=== PATIENT | female | born 1985 | race African-American/Black ===

== ENCOUNTER 2020-02-17 13:48 | Emergency (ER) | payer MEDICAID, SELFPAY ==
[2020-02-17 13:51] VITALS: BP 110/77; PULSE 88; RESP 16; TEMP 36.6; O2SAT 99; BMI 25.0
--- NOTE | 2020-02-17 14:05 | XR_ITS ---
EXAMINATION: XR FOOT, LEFT CLINICAL INFORMATION: Injury. COMPARISON: None TECHNIQUE: AP, lateral, and oblique views of the left foot. FINDINGS: There is a faint area of linear sclerosis through the base of the 5th metatarsal, adjacent to the overlying skin marker. Findings may represent a nondisplaced fracture. Correlation for focal tenderness is recommended. No additional fracture or dislocation. No joint space narrowing or marginal osteophytes. No osseous erosion. No abnormal soft tissue calcification. XR/XR foot LT min 3V IMPRESSION: Possible nondisplaced, transverse fracture through the proximal 5th metatarsal diaphysis.
--- NOTE | 2020-02-17 16:04 | ED.LOWEXIN ---
HPI - Extremity Injury (Lower) General Chief Complaint: Extremity Injury, Lower Stated Complaint: foot injury Time Seen by Provider: 02/17/20 14:05 History of Present Illness HPI Narrative: Pain in left foot after twisting it this morning, no other injuries no head injury no neck pain no headache no dizziness no weakness she tripped and fell and remembers everything Related Data Previous Rx's Medication Instructions Recorded hydrocodone-acetaminophen 1 tab PO Q6H PRN #10 tab 02/17/20 ibuprofen 600 mg PO Q6H PRN #20 tab 02/17/20 Allergies Allergy/AdvReac Type Severity Reaction Status Date / Time No Known Allergies Allergy Verified 02/17/20 13:55 Review of Systems Review of Systems: Positive for left ankle pain and swelling No dizziness no weakness no headache no confusion no head injury no loss of consciousness no neck pain no numbness weakness or tingling no other injury PMFSH Past Medical History Source: nursing notes reviewed Social History Social History Advance Directives: No Advance Directives Information Provided: No Physical Exam Vital Signs: Vital Signs: Last Vital Signs Temp 97.9 F 02/17/20 13:51 Pulse 88 02/17/20 13:51 Resp 16 02/17/20 13:51 BP 110/77 02/17/20 13:51 Pulse Ox 99 02/17/20 13:51 Body Mass Index 25.0 General appearance comfortable relax no distress cooperative The head is normocephalic atraumatic The neck is supple The respiratory there is no respiratory distress The extremities the left foot is tender and swollen over the 5th metatarsal, the ankle has full range of motion, the toes have full range of motion, skin is intact and neurovascular intact Neuro no focal deficit Course Course Course Narrative: X-ray showed a probable left 5th meta tarsal in the same area as the tenderness and swelling Patient is given postop shoe and crutches and will follow with Orthopedics Discharge Plan Discharge Clinical Impression: Foot fracture, left Patient Disposition: Home, Self-Care Additional Instructions: X-ray showed you probably broke a bone in her foot, so follow with orthopedist next week Wear shoe to immobilize the foot Minimal weight-bearing Return any concerns Prescriptions: New hydrocodone-acetaminophen 5-325 mg tablet 1 tab PO Q6H PRN (Reason: pain) Qty: 10 RF: 0 ibuprofen 600 mg tablet 600 mg PO Q6H PRN (Reason: pain) Qty: 20 RF: 0 Referrals: Romario Corral MD [Physician] - 2 days (Left foot 5th metatarsal fracture) Interventions: ED Discharge Assessment Last Done: 02/17/20 16:06 Discharge Date/Time: 02/17/20 16:08
--- NOTE | 2020-02-17 16:07 | PC.NURSE ---
POST OP SHOE AND CRUTCHES IN USE AT TIME OF DC
== END 2020-02-17 16:08 | disposition home or self-care (01) ==
PROVIDERS: Emergency Provider Emergency Medicine; PCP Internal Medicine
DX: S92.355A Nondisplaced fracture of fifth metatarsal bone, left foot, initial encounter for closed fracture (principal); X50.1XXA Overexertion from prolonged static or awkward postures, initial encounter; Y93.9 Activity, unspecified; Y92.019 Unspecified place in single-family (private) house as the place of occurrence of the external cause; Y99.9 Unspecified external cause status
CPT/HCPCS: 73630; 99283

== ENCOUNTER → 2020-02-22 10:14 | Outpatient (BNVA) | payer MEDICAID, SELFPAY | PROVIDERS: PCP Internal Medicine; Visit Provider Physician Assistant | DX: S92.355A Nondisplaced fracture of fifth metatarsal bone, left foot, initial encounter for closed fracture (principal) | CPT/HCPCS: 99202 ==

== ENCOUNTER 2020-03-28 08:48 | Outpatient (REF) | payer MEDICAID, SELFPAY ==
--- NOTE | ~2020-03-28 | XR_ITS ---
EXAMINATION: XR FOOT, LEFT CLINICAL INFORMATION: Fracture COMPARISON: Previous x-ray 02/17/2020 TECHNIQUE: AP, lateral, and oblique views of the left foot. FINDINGS: Bone alignment is normal. No definite fracture or dislocation is seen. Faint linear line of sclerosis in the proximal shaft of the fifth metatarsal bone appears unchanged. Similar finding is seen in the base of the fourth metatarsal bone and appearance is unlikely to represent a fracture. This could be confirmed with a bone scan or cross-sectional imaging if clinically indicated. There is mild hallux valgus deformity at the first MTP joint. Joint spaces are normal. There is a small 1 to 2 mm radiopaque soft tissue density adjacent to the proximal phalanx of the fifth toe and question adjacent to the first metatarsal head. XR/XR foot LT min 3V IMPRESSION: No definite fracture is seen. Mild hallux valgus deformity at the first MTP joint.
== END 2020-03-28 08:49 | disposition home or self-care (01) ==
LOC: HO.HOSX 08:48
PROVIDERS: Visit Provider Physician Assistant
DX: S92.355A Nondisplaced fracture of fifth metatarsal bone, left foot, initial encounter for closed fracture (principal); X58.XXXA Exposure to other specified factors, initial encounter; Y93.9 Activity, unspecified; Y92.9 Unspecified place or not applicable; Y99.8 Other external cause status
CPT/HCPCS: 73630; 99212

== ENCOUNTER 2020-06-11 16:15 | Emergency (ER) | payer MEDICAID, SELFPAY ==
[2020-06-11 16:38] VITALS: BP 132/83; PULSE 97; RESP 18; TEMP 36.7; O2SAT 98; BMI 25.0
--- NOTE | 2020-06-11 16:59 | ED.GENADULT ---
HPI - General Adult General Chief complaint: General Medical Stated complaint: Cough Time Seen by Provider: 06/11/20 16:46 Source: patient Mode of arrival: ambulatory Limitations: no limitations History of Present Illness HPI narrative: 34-year-old female with a past medical history of asthma here with complaints of scratchy, dry throat times several weeks with a dry cough.. No shortness of breath, wheezing, runny nose, sneezing or itching eyes. Patient's motor primary care doctor and was recommended she use Flonase after negative COVID test. She tells me she uses for 1 week with continued symptoms. No fevers or chills. Related Data Home Medications Medication Instructions Recorded Confirmed citalopram 10 mg tablet 10 mg PO DAILY 02/22/20 Previous Rx's Medication Instructions Recorded hydrocodone-acetaminophen 1 tab PO Q6H PRN #10 tab 02/17/20 ibuprofen 600 mg PO Q6H PRN #20 tab 02/17/20 albuterol sulfate [ProAir HFA] 2 puff INHALATION Q4-6H PRN #6.7 g 06/11/20 cetirizine 10 mg PO DAILY #20 tab 06/11/20 fluticasone propionate [Flonase 2 spray INTRANASAL DAILY #16 g 06/11/20 Allergy Relief] Allergies Allergy/AdvReac Type Severity Reaction Status Date / Time No Known Allergies Allergy Verified 02/17/20 13:55 Review of Systems Review of Systems: Yes all other systems are reviewed and are negative Constitutional: Constitutional: Reports no additional constitutional complaints, Denies body ache(s), Denies chills, Denies fever(s), Denies headache(s) and Denies weakness Eyes: Eyes: Reports no additional eye complaints and Denies change in vision ENT: Reports system reviewed and no additional complaints, except as documented, Denies dizziness, Denies headache(s), Denies nasal congestion, Denies nasal discharge, Denies neck pain and Reports sore throat Cardiovascular: Cardiovascular: Reports no additional cardiovascular complaints, Denies chest pain, Denies leg edema and Denies dyspnea Respiratory: Respiratory: Reports no additional respiratory complaints, Reports cough and Denies dyspnea Gastrointestinal: Gastrointestinal: Reports no additional gastrointestinal complaints, Denies abdominal pain, Denies diarrhea, Denies nausea and Denies vomiting Genitourinary: Genitourinary: Reports no additional female genitourinary complaints and Denies urinary incontinence Musculoskeletal: Musculoskeletal: Reports no additional musculoskeletal complaints, Denies back pain, Denies arthralgias, Denies joint swelling, Denies neck pain, Denies numbness and Denies tingling Integumentary/Breasts: Skin/Breast: Reports system reviewed and no additional complaints, except as docu and Denies rash Neurologic: Reports system reviewed and no additional complaints, except as documented, Denies Abnormal speech present, Denies dizziness, Denies headache(s), Denies numbness, Denies tingling and Denies weakness [facility] Past Medical History Attestation statement: The following information was validated with the patient. Source: old records reviewed and nursing notes reviewed Medical History Asthma Surgical History Hx of appendectomy Family History Family History Mother No problems noted. Father No problems noted. Social History Social History Alcohol intake: never Smoking Status: Never smoker Advance Directives: No Advance Directives Information Provided: No Current occupational status: unemployed and other Current occupation: right handed Physical Exam Vital Signs: Vital Signs: Last Vital Signs Temp 98.0 F 06/11/20 16:38 Pulse 97 06/11/20 16:38 Resp 18 06/11/20 16:38 BP 132/83 06/11/20 16:38 Pulse Ox 98 06/11/20 16:38 Body Mass Index 25.0 Const: General: cooperative, healthy appearing, comfortable and no acute distress Orientation/consciousness: patient oriented x3 Limitations: no limitations HENMT: Head: Yes normal to inspection Ears: hearing grossly normal bilaterally General nose exam: Normal external nose present Face and sinus: Yes normal facial exam Mouth: Normal oral and palatal mucosa present Throat: Yes posterior oropharynx normal, Yes uvula midline, Yes abnormal tonsil (Mild erythema bilaterally with no exudate) and Yes postnasal drainage Eyes: General: appearance normal, both eyes and all related structures Pupils: Equal, round and reactive pupils present Neck: Neck: Yes normal visual inspection Chest: Chest palpation & inspection: normal inspection of the chest Resp: Effort & Inspection: normal respiratory effort Auscultation: clear to auscultation bilaterally Cardio: Rate: regular rate Rhythm: regular rhythm Peripheral pulses: Peripheral pulses 2+ throughout GI: Inspection: Yes normal to inspection Palpation (GI): Soft to palpation and nontender Auscultation: normal bowel sounds Back/Spine/Pelvis: Thoracic/Lumbar Spine: thoracic and lumbar spine normal to inspection Skin: General skin exam: no rashes or lesions noted Neuro: General: patient oriented x3, no focal motor deficits and normal sensation to monofilament Cranial nerves: Yes Equal, round and reactive pupils present Cognition (Neuro): normal cognition Speech: No Abnormal speech present Gait exam (Neuro): Normal gait present Motor exam (neuro): 5/5 motor strength present throughout Extrem: General: Yes normal to inspection Course Course Course Narrative: 34-year-old female here with itchy, dry throat with occasional dry cough for several weeks. No fevers or chills. Posterior oropharynx not consistent with strep pharyngitis. Patient did request a throat culture and this was sent. Likely secondary to allergic rhinitis. Discussed continuing Flonase, starting a daily allergy medicine like Zyrtec and using her albuterol inhaler as needed. Reviewed worrisome signs and symptoms and when to return to the emergency department. Comfortable discharge home. Discharge Plan Discharge Clinical Impression: Allergic rhinitis Pharyngitis Qualifiers: Pharyngitis/tonsillitis etiology: unspecified etiology Qualified Code(s): J02.9 - Acute pharyngitis, unspecified Patient Disposition: Home, Self-Care Instructions: Pharyngitis (ED), Allergies (ED) Additional Instructions: We have tested you for strep throat. Will call you if your results are positive and you require antibiotics. Follow-up with your primary care doctor Prescriptions: New fluticasone propionate [Flonase Allergy Relief] 50 mcg/actuation spray,suspension 2 spray intranasal DAILY Qty: 16 RF: 0 albuterol sulfate [ProAir HFA] 90 mcg/actuation HFA aerosol inhaler 2 puff inhalation Q4-6H PRN (Reason: shortness of breath or wheezing) Qty: 6.7 RF: 0 cetirizine 10 mg tablet 10 mg PO DAILY Qty: 20 RF: 0 No Action hydrocodone-acetaminophen 5-325 mg tablet 1 tab PO Q6H PRN (Reason: pain) Qty: 10 RF: 0 ibuprofen 600 mg tablet 600 mg PO Q6H PRN (Reason: pain) Qty: 20 RF: 0 Referrals: Garrison Marinelli MD [Primary Care Provider] - 2 days Stand Alone Forms: Work/School Release Interventions: ED Discharge Assessment Last Done: 06/11/20 17:20 Discharge Date/Time: 06/11/20 17:20
== END 2020-06-11 17:20 | disposition home or self-care (01) ==
PROVIDERS: Emergency Provider Internal Medicine; PCP Internal Medicine
DX: J30.9 Allergic rhinitis, unspecified (principal); J02.9 Acute pharyngitis, unspecified; R05 Cough; Z79.899 Other long term (current) drug therapy
CPT/HCPCS: 87071; 99283

== ENCOUNTER 2020-11-30 05:29 | Emergency (ER) | payer MEDICAID, SELFPAY ==
[2020-11-30 05:35] VITALS: BP 107/71; PULSE 89; RESP 18; TEMP 36.5; O2SAT 97; BMI 25.7
[2020-11-30 06:24] LABS: Basophils Percent Auto 0.2 % (0-2); Hemoglobin 12.3 g/dl (12.0-16.0); Imm Gran Abs Auto 0.01 X10*3/uL (0.00-0.03); Imm Gran Pct Auto 0.2 % (0.0-0.4); MANUAL DIFF FLAG SCAN; Mean Corpuscular HGB Conc 33.2 g/dl (31.0-35.0); Mean Corpuscular Volume 84.3 fL (80-98); PLT CLUMP 1; Red Blood Count 4.39 X10*6/uL (4.20-5.50); Red Cell Distribution Width 12.4 % (11.0-16.0); SCAN SMEAR FLAG 1
[2020-11-30 06:26] LABS: Eosinophils Absolute Auto 0.1 X10*3/uL (0.0-0.4); Eosinophils Percent Auto 1.6 % (0-4); Lymphocytes Absolute Auto 1.3 X10*3/uL (1.2-4.9); Lymphocytes Percent Auto 19.9 % (20-40); Mean Platelet Volume 11.8 fL (9.4-12.3); Monocytes Absolute Auto 0.5 X10*3/uL (0.1-1.2); Monocytes Percent Auto 8.5 % (2-11); Neutrophils Absolute Auto 4.5 X10*3/uL (2.0-8.3); Neutrophils Percent Auto 69.6 % (45-73); Platelet Count 132 X10*3/uL (160-400); White Blood Count 6.4 X10*3/uL (4.8-10.8)
[2020-11-30 06:36] LABS: Alanine Aminotransferase 13 U/L (0-31); Albumin Level 4.3 g/dL (3.5-5.0); Alkaline Phosphatase 68 U/L (39-117); Anion Gap 11 (12-20); Aspartate Amino Transferase 17 U/L (5-31); Bilirubin Total 0.5 mg/dL (0.0-1.0); Blood Urea Nitrogen 5 mg/dL (9-16); Calcium 8.9 mg/dL (8.4-10.2); Carbon Dioxide 28 mmol/L (22-29); Chloride 103 mmol/L (96-108); Creatinine Clr Calc Pharmacy 109.2; Estimated Glomerular Filt Rate > 60; Glucose Random 96 mg/dL (60-115); Potassium 3.8 mmol/L (3.3-5.1); Sodium 138 mmol/L (135-145); Total Protein 7.2 g/dL (6.5-8.0)
[2020-11-30 06:43] LABS: SLIDE REVIEW VERIFIED
--- NOTE | 2020-11-30 06:52 | ED.EXTPRO ---
HPI - Extremity Problem General Chief complaint: Extremity Injury, Upper Stated complaint: swollen arm Time Seen by Provider: 11/30/20 06:39 Source: patient Mode of arrival: ambulatory Limitations: no limitations History of Present Illness HPI Narrative: Patient comes emergency room complaining of a skin infection in her left forearm. Patient states that approximately 3 days ago, she had a pimple, she squeezed it with her fingers, shortly after it started becoming red, swollen, and painful. Patient denies fever chills, patient denies any joint pain especially in the elbow. Related Data Home Medications Medication Instructions Recorded Confirmed citalopram 10 mg tablet 10 mg PO DAILY 02/22/20 Previous Rx's Medication Instructions Recorded hydrocodone 5 mg-acetaminophen 325 1 tab PO Q6H PRN #10 tab 02/17/20 mg tablet ibuprofen 600 mg tablet 600 mg PO Q6H PRN #20 tab 02/17/20 albuterol sulfate 90 mcg/actuation 2 puff INHALATION Q4-6H PRN #6.7 g 06/11/20 aerosol inhaler (ProAir HFA) cetirizine 10 mg tablet 10 mg PO DAILY #20 tab 06/11/20 fluticasone propionate 50 2 spray INTRANASAL DAILY #16 g 06/11/20 mcg/actuation nasal spray,suspension (Flonase Allergy Relief) sulfamethoxazole 800 1 tab PO BID #19 tab 11/30/20 mg-trimethoprim 160 mg tablet (Bactrim DS) Allergies Allergy/AdvReac Type Severity Reaction Status Date / Time No Known Allergies Allergy Verified 02/17/20 13:55 Review of Systems Review of Systems: Constitutional : No Weight loss, No Fever, No Chills, No Night Sweats, No Fatigue, No Malaise ENT/Mouth : No Hearing loss, No Ear Pain, No Nasal Congestion, No Sinus Pain, No Hoarseness, No sore throat, No Rhinorrhea, No Swallowing Difficulty Eyes: No Eye Pain, No Swelling, No Redness, No Foreign Body, No Discharge, No Vision Changes Cardiovascular : No Chest Pain, No SOB, No Dyspnea on Exertion, No Orthopnea, No Edema, No Palpitations Respiratory : No Cough, No Sputum, No Wheezing, No Smoke Exposure, No Dyspnea Gastrointestinal : No Nausea, No Vomiting, No Diarrhea, No Constipation, No abdominal Pain, No Hematochezia, No Melena Genitourinary : no irregular bleeding, No Dysuria, No Urinary Frequency, No Hematuria, No Urinary Incontinence, No Urgency, No Flank Pain, No Urinary Flow Changes, No Hesitancy Musculoskeletal : No joint pain, No Myalgias, No Joint Swelling Skin : Skin infection in the proximal forearm left side Neuro : No Weakness, No Numbness, No Paresthesias, No Loss of Consciousness, No Dizziness, No Headache Psych : No Anxiety/Panic, No Depression, No SI/HI/AH/VH, No Social Issues, Heme/Lymph: No Bruising, No Bleeding,No Lymphadenopathy Endocrine : No Polyuria, No Polydipsia, No Temperature Intolerance [facility] Past Medical History Medical History Asthma Surgical History Hx of appendectomy Family History Family History Mother No problems noted. Father No problems noted. Social History Social History Alcohol intake: never Advance Directives: No Advance Directives Information Provided: Yes Patient : No Current occupational status: unemployed and other Current occupation: right handed Physical Exam Vital Signs: Vital Signs: Last Vital Signs Temp 97.7 F 11/30/20 05:35 Pulse 89 11/30/20 05:35 Resp 18 11/30/20 05:35 BP 107/71 11/30/20 05:35 Pulse Ox 97 11/30/20 05:35 Body Mass Index 25.7 Const: Other: Appearance: Alert. Oriented X3. No acute distress. Eyes: Pupils equal, round and reactive to light. ENT: Pharynx normal. Neck: Normal inspection. Neck supple. No lymph nodes noted. No crepitus CVS: Normal heart rate and rhythm. Pulses normal. Normal S1 and S2 Respiratory: No respiratory distress. Breath sounds normal. No Wheezing. No rales Abdomen: Soft and nontender. No rigidity. No distention. good BS x4 Skin: Skin warm and dry. See extremity below Extremities: No lower extremity edema. 6 cm x 6 cm erythematous patch in the proximal aspect of the forearm on the left side, bedside ultrasound shows cobblestone pattern/cellulitis, no abscess, no fluid in the joint. Patient is able to flex and extend wrist elbow and shoulder without difficulty. No pain to palpation over the elbow on the left side. Neuro: Oriented X 3. No motor deficit. No sensory deficit. Moving all extermities. No slurred speech. Course Course Course Narrative: I discussed the physical exam with the patient, at this time septic joint is not suspected. White blood cell count within normal limits, no fever chills. Patient was given the 1st dose of Bactrim. Patient was instructed to return to the emergency room she has any worsening symptoms, not improving, or any new symptoms. MDM - Extremity (Nontraumatic) Lab Data Result diagrams: 11/30/20 06:13 11/30/20 06:13 Labs: Lab Results 11/30/20 11/30/20 Range/Units 06:13 06:13 WBC 6.4 (4.8-10.8) X10*3/uL RBC 4.39 (4.20-5.50) X10*6/uL Hgb 12.3 (12.0-16.0) g/dl Hct 37.0 (37-47) % MCV 84.3 (80-98) fL MCH 28.0 (27.0-33.0) pg MCHC 33.2 (31.0-35.0) g/dl RDW 12.4 (11.0-16.0) % Plt Count 132 L (160-400) X10*3/uL MPV 11.8 (9.4-12.3) fL Immature Gran % (Auto) 0.2 (0.0-0.4) % Neut % (Auto) 69.6 (45-73) % Lymph % (Auto) 19.9 L (20-40) % Bladen % (Auto) 8.5 (2-11) % Eos % (Auto) 1.6 (0-4) % Baso % (Auto) 0.2 (0-2) % Lymph # (Auto) 1.3 (1.2-4.9) X10*3/uL Bladen # (Auto) 0.5 (0.1-1.2) X10*3/uL Eos # (Auto) 0.1 (0.0-0.4) X10*3/uL Baso # (Auto) 0.0 (0.0-0.2) X10*3/uL Abs Immat Gran (auto) 0.01 (0.00-0.03) X10*3/uL Absolute Neuts (auto) 4.5 (2.0-8.3) X10*3/uL Absolute Nucleated RBC 0.000 (0.0-0.012) X10*3/uL Nucleated RBC % (auto) 0.0 (0.0-0.2) /100WBC Smear Tech's Comments VERIFIED Sodium 138 (135-145) mmol/L Potassium 3.8 (3.3-5.1) mmol/L Chloride 103 (96-108) mmol/L Carbon Dioxide 28 (22-29) mmol/L Anion Gap 11 L (12-20) BUN 5 L (9-16) mg/dL Creatinine 0.78 (0.5-1.4) mg/dL Estim Creat Clear Calc 109.2 Estimated GFR > 60 Random Glucose 96 (60-115) mg/dL Calcium 8.9 (8.4-10.2) mg/dL Total Bilirubin 0.5 (0.0-1.0) mg/dL AST 17 (5-31) U/L ALT 13 (0-31) U/L Alkaline Phosphatase 68 (39-117) U/L Total Protein 7.2 (6.5-8.0) g/dL Albumin 4.3 (3.5-5.0) g/dL Discharge Plan Discharge Clinical Impression: Cellulitis of arm Patient Disposition: Home, Self-Care Instructions: Cellulitis (ED) Additional Instructions: If the infection does not improve in the next 48 hours, or if you develop at any time fever, chills, worsening pain, any new symptoms, please return to the emergency room. Please follow-up with your primary care physician tomorrow. If you have any worsening or new symptoms, please return to the emergency room or call 911 Prescriptions: New sulfamethoxazole-trimethoprim [Bactrim DS] 800-160 mg tablet 1 tab PO BID Qty: 19 RF: 0 No Action hydrocodone-acetaminophen 5-325 mg tablet 1 tab PO Q6H PRN (Reason: pain) Qty: 10 RF: 0 ibuprofen 600 mg tablet 600 mg PO Q6H PRN (Reason: pain) Qty: 20 RF: 0 fluticasone propionate [Flonase Allergy Relief] 50 mcg/actuation spray,suspension 2 spray intranasal DAILY Qty: 16 RF: 0 albuterol sulfate [ProAir HFA] 90 mcg/actuation HFA aerosol inhaler 2 puff inhalation Q4-6H PRN (Reason: shortness of breath or wheezing) Qty: 6.7 RF: 0 cetirizine 10 mg tablet 10 mg PO DAILY Qty: 20 RF: 0
[2020-11-30] MEDS: Sulfamethox/Trimeth 800/160 TABLET 1 TAB PO (07:05)
== END 2020-11-30 07:06 | disposition home or self-care (01) ==
PROVIDERS: Emergency Provider Emergency Medicine
DX: L03.114 Cellulitis of left upper limb (principal); Z79.899 Other long term (current) drug therapy
CPT/HCPCS: 36415; 80053; 85025; 99283; 99284

== ENCOUNTER 2021-02-18 20:35 | Emergency (ER) | payer MEDICAID, SELFPAY ==
[2021-02-18 21:40] VITALS: BP 112/75; PULSE 77; RESP 14; TEMP 36.9; O2SAT 98; BMI 25.0
--- NOTE | 2021-02-18 21:56 | ECG_ITS ---
Test Reason : DIZZY Blood Pressure : / mmHG Vent. Rate : 063 BPM Atrial Rate : 063 BPM P-R Int : 140 ms QRS Dur : 092 ms QT Int : 386 ms P-R-T Axes : 066 083 034 degrees QTc Int : 395 ms Normal sinus rhythm Normal ECG No previous ECGs available Referred By: Mc Claudio Electronically Signed By:ROBB PALMER MD
--- NOTE | 2021-02-18 21:56 | ED_ITS ---
HPI - General Adult General Chief complaint: General Medical Stated complaint: food allegries, hives all over body Time Seen by Provider: 02/18/21 21:56 Source: patient Mode of arrival: ambulatory Limitations: no limitations History of Present Illness HPI narrative: Patient with history of allergies in the past multiple times from multiple agents she ate some overt with berries and started having hives so she drank about 200 mg of children Benadryl as she was scared of having anaphylaxis and she does not have EpiPen at home she took the medication about an hour prior to arrival at this time patient is very sleepy no other complaints hives are getting better no shortness of breath no tongue swelling or lip swelling Related Data Home Medications Medication Instructions Recorded Confirmed citalopram 10 mg tablet 10 mg PO DAILY 02/22/20 Previous Rx's Medication Instructions Recorded hydrocodone 5 mg-acetaminophen 325 1 tab PO Q6H PRN #10 tab 02/17/20 mg tablet ibuprofen 600 mg tablet 600 mg PO Q6H PRN #20 tab 02/17/20 albuterol sulfate 90 mcg/actuation 2 puff INHALATION Q4-6H PRN #6.7 g 06/11/20 aerosol inhaler (ProAir HFA) cetirizine 10 mg tablet 10 mg PO DAILY #20 tab 06/11/20 fluticasone propionate 50 2 spray INTRANASAL DAILY #16 g 06/11/20 mcg/actuation nasal spray,suspension (Flonase Allergy Relief) sulfamethoxazole 800 1 tab PO BID #19 tab 11/30/20 mg-trimethoprim 160 mg tablet (Bactrim DS) prednisone 20 mg tablet 40 mg PO DAILY #10 tab 02/18/21 Allergies Allergy/AdvReac Type Severity Reaction Status Date / Time No Known Allergies Allergy Verified 02/17/20 13:55 Review of Systems Review of Systems: Yes all other systems are reviewed and are negative PMFSH Past Medical History Medical History Asthma Surgical History Hx of appendectomy Family History Family History Mother No problems noted. Father No problems noted. Social History Social History Alcohol intake: never Advance Directives: No Advance Directives Information Provided: No Patient : No Current occupational status: unemployed and other Current occupation: right handed Physical Exam Vital Signs: Vital Signs: Last Vital Signs Temp 98.4 F 02/18/21 21:40 Pulse 82 02/18/21 22:02 Resp 18 02/18/21 22:02 BP 120/67 02/18/21 22:02 Pulse Ox 98 02/18/21 22:02 BMI result Body Mass Index 25.0 Appearance: Alert. Oriented X3. No acute distress. Lethargic Eyes: PERRLA, No Nystagmus ENT: Pharynx normal. Oral Mucosa moist lips are normal tongue is normal uvula normal no stridor Neck: Normal inspection. Neck supple. CVS: Normal heart rate and rhythm. Pulses normal. Respiratory: No respiratory distress. Equal air entry bilateral, no wheezing/rales/rhonchi Abdomen: Soft and nontender. Bowel sounds are present, Skin: Skin warm and dry. Normal skin color. Normal skin turgor. Few hives on abdominal wall Extremities: No lower extremity edema. No calf tenderness Neuro: Oriented X 3. No motor deficit. Medical Decision Making MDM Narrative Medical decision making narrative: Patient with known toxic overdose on Benadryl which is less than 300 mg daily dosage. Patient advised about the side effect of Benadryl advised not to take over the prescribed dose of Benadryl was given prescription of prednisone as she had a bad history of allergic reaction in the past will discharge patient home advised to follow-up with simulation specialist Discharge Plan Discharge Clinical Impression: Allergic reaction, Overdose Patient Disposition: Home, Self-Care Instructions: General Allergic Reaction (ED), Adult Overdose (ED) Additional Instructions: Do not take medication more than prescribed Prednisone for allergic reaction if rash continues Follow the simulation specialist Drink plenty of fluids Prescriptions: New prednisone 20 mg tablet 40 mg PO DAILY Qty: 10 RF: 0 No Action hydrocodone-acetaminophen 5-325 mg tablet 1 tab PO Q6H PRN (Reason: pain) Qty: 10 RF: 0 ibuprofen 600 mg tablet 600 mg PO Q6H PRN (Reason: pain) Qty: 20 RF: 0 fluticasone propionate [Flonase Allergy Relief] 50 mcg/actuation spray,suspension 2 spray intranasal DAILY Qty: 16 RF: 0 albuterol sulfate [ProAir HFA] 90 mcg/actuation HFA aerosol inhaler 2 puff inhalation Q4-6H PRN (Reason: shortness of breath or wheezing) Qty: 6.7 RF: 0 cetirizine 10 mg tablet 10 mg PO DAILY Qty: 20 RF: 0 sulfamethoxazole-trimethoprim [Bactrim DS] 800-160 mg tablet 1 tab PO BID Qty: 19 RF: 0 Interventions: ED Discharge Assessment Last Done: 02/18/21 22:48 Discharge Date/Time: 02/18/21 22:49
[2021-02-18 22:02] VITALS: BP 120/67; PULSE 82; RESP 18; O2SAT 98
[2021-02-18] MEDS: dexAMETHasone 2 MG TABLET 10 MG PO (22:23)
== END 2021-02-18 22:49 | disposition home or self-care (01) ==
PROVIDERS: Emergency Provider Internal Medicine; PCP Internal Medicine
DX: L50.9 Urticaria, unspecified (principal); T78.40XA Allergy, unspecified, initial encounter; X58.XXXA Exposure to other specified factors, initial encounter; T45.0X1A Poisoning by antiallergic and antiemetic drugs, accidental (unintentional), initial encounter; R53.83 Other fatigue; Y92.009 Unspecified place in unspecified non-institutional (private) residence as the place of occurrence of the external cause
CPT/HCPCS: 93005; 99283; 99284; J8540

== ENCOUNTER 2022-09-23 15:26 | Outpatient (REF) | payer OTHER, SELFPAY ==
[2022-09-24 04:20] LABS: HBS Num1 39.34 mIU/mL (0-7.99); ~Hepatitis B Surface Antibody REACTIVE (Nonreactive)
[2022-09-25 07:28] LABS: Rubella IgG Antibody 5.76 Index; Rubeola IgG (Measles) >300.00 AU/mL
[2022-09-25 12:19] LABS: TS Negative Control Passed; TS Panel A 0; TS Panel B 0; TS Positive Control Passed; TSpotTB Negative (Negative)
== END 2022-09-23 15:27 | disposition home or self-care (01) ==
LOC: HO.LNP 15:26
PROVIDERS: Visit Provider Physician Assistant Medical
DX: Z02.1 Encounter for pre-employment examination (principal); Z11.1 Encounter for screening for respiratory tuberculosis
CPT/HCPCS: 86481; 86706; 86735; 86762; 86765; 86787

== ENCOUNTER 2023-03-03 17:53 | Emergency (ER) | payer OTHER, SELFPAY ==
--- NOTE | ~2023-03-03 | XR_ITS ---
EXAMINATION: XR KNEE, LEFT CLINICAL INFORMATION: pain after losing footing walking down bleachers COMPARISON: None available. TECHNIQUE: Four views of the left knee. FINDINGS: No fracture or joint effusion. Alignment is anatomic. Joint spaces are maintained. No abnormal soft tissue calcification. XR/XR knee LT 3V IMPRESSION: Normal left knee.
[2023-03-03 17:56] VITALS: BP 137/88; PULSE 86; RESP 18; TEMP 36.4; O2SAT 100; BMI 24.7
--- NOTE | 2023-03-03 17:57 | ED_ITS ---
HPI - Extremity Injury (Lower) General Chief Complaint: Extremity Injury, Lower Stated Complaint: left knee pain, fell Time Seen by Provider: 03/03/23 22:02 Source: patient Mode of arrival: ambulatory Limitations: no limitations History of Present Illness HPI Narrative: Patient is a 37-year-old female who presents emergency department for evaluation of traumatic left knee pain. She reports 2 days ago she was walking down the bleachers when she fell resulting in pain to the left lower extremity. She reports a sharp shooting pain diffusely throughout the knee when weight-bearing or if the leg is put in full extension. Intermittent tingling sensation to the foot. Pain is tolerable if she has not bearing weight. She has been using ibuprofen for pain management. Related Data Home Medications Medication Instructions Recorded Confirmed citalopram 10 mg tablet 10 mg PO DAILY 02/22/20 Previous Rx's Medication Instructions Recorded hydrocodone 5 mg-acetaminophen 325 1 tab PO Q6H PRN pain #10 tabs 02/17/20 mg tablet ibuprofen 600 mg tablet 600 mg PO Q6H PRN pain #20 tabs 02/17/20 albuterol sulfate 90 mcg/actuation 2 puff inhalation Q4-6H PRN 06/11/20 aerosol inhaler (ProAir HFA) shortness of breath or wheezing #6.7 grams cetirizine 10 mg tablet 10 mg PO DAILY #20 tabs 06/11/20 fluticasone propionate 50 2 spray intranasal DAILY #16 grams 06/11/20 mcg/actuation nasal spray,suspension (Flonase Allergy Relief) sulfamethoxazole 800 1 tab PO BID #19 tabs 11/30/20 mg-trimethoprim 160 mg tablet (Bactrim DS) prednisone 20 mg tablet 40 mg (2 x 20 mg) PO DAILY #10 tabs 02/18/21 Allergies Allergy/AdvReac Type Severity Reaction Status Date / Time No Known Allergies Allergy Verified 02/17/20 13:55 Review of Systems Review of Systems: Yes all other systems are reviewed and are negative PMFSH Past Medical History Attestation statement: The following information was validated with the patient. Source: old records reviewed Onset Date is defined in the Problem List Problems that require an onset date and time if occurred within 24 hrs of arrival to the ED Aortic Dissection and Rupture; Neurologic impairment; Cardiopulmonary Arrest; Endotracheal Intubation; Insertion or Replacement of Mechanical Circulatory Assist Device Medical History Asthma Surgical History Hx of appendectomy Family History Family History Mother No problems noted. Father No problems noted. Social History Social History Alcohol intake: never Current occupational status: unemployed and other Current occupation: right handed Physical Exam Vital Signs: Vital Signs: Last Vital Signs Temp 97.5 F 03/03/23 17:56 Pulse 74 03/03/23 22:00 Resp 12 03/03/23 22:00 BP 116/79 03/03/23 22:00 Pulse Ox 97 03/03/23 22:00 O2 Del Method Room Air 03/03/23 22:00 BMI result Body Mass Index 24.7 Appearance: Alert.?Oriented to person, place and time. No acute distress.?Normal affect. Eyes: Pupils equal, round and reactive to light.? ENT: Pharynx normal.?? Neck: Normal inspection.? Neck supple.?? CVS: Heart sounds normal. Normal heart rate and rhythm.? Pulses normal.?? Respiratory: No respiratory distress.? Lung sounds clear to auscultation bilaterally?? Abdomen: Soft and non-tender. Normoactive bowel sounds. ? Skin: Skin warm and dry.? Normal skin color.? Extremities: No lower extremity edema.? No calf ttp?2+ DP/PT pulse bilaterally. Anterior drawer test negative, posterior drawer test negative, valgus and varus stress test negative, no laxity upon examination. Neuro: Moves all extremities spontaneously. Sensation intact bilaterally. CN II- XII intact. No focal neuro deficits. Ambulates with antalgic gait, Course Course Course Narrative: This is a rapid medical exam: Additional HPI, ROS, PE not included below will be deferred to primary provider. Patient is a 37-year-old female presenting to the ED with complaint of left anterior knee pain. States she was walking down bleachers on Thursday when she slipped. States pain is worst with weight bearing and full extension. Arrives with knee brace to L knee and utilizing crutches. Has been elevating, alternating ice and hot tub, using ibuprofen. Plan: x-ray Medical Decision Making Medical Decision Making MDM Narrative: Patient is a 37-year-old female who presents emergency department for evaluation of traumatic left knee pain as per HPI. XR is unremarkable for any acute fracture dislocation. No palpable deformity or crepitus on exam, no laxity. Pain is held at approximately 20 degrees flexion which is positioned most comfort, full extension results are pain. The extremities neurovascularly intact distally. I discussed with patient concerns for possible ligamentous/meniscus injury given mechanism of injury. She has a Velcro supportive brace that she purchased [id number] which I advised her to continue wearing in addition to rest, ice, and elevation. She may continue using the crutches. Acetaminophen/ibuprofen for pain management. Advised outpatient follow-up with primary care provider/Orthopedics. We discussed worrisome signs and symptoms that would warrant re-evaluation in the emergency department. All questions answered. Stable for discharge. Differential Diagnosis Differential Diagnoses: The differential diagnosis associated with the presentation includes (As noted above) Admission/Observation Consideration of admission/observation: Escalation of care including admission/ observation considered (See narrative above) Independent Interpretation I performed an independent interpretation of an: Plain X-Ray (I personally inte rpreted XR imaging and agree with radiologist impression.) Radiology Impression Discussion of test interpretation with radiology: I have reviewed the r adiologist's reading. Radiologist Impression: XR/XR knee LT 3V IMPRESSION: Normal left knee. Prescription Management I considered prescription management with: Pain Medication (Acetaminophen/ibuprofen) Discharge Plan Discharge Clinical Impression: Left knee sprain Patient Disposition: Home, Self-Care Instructions: Knee Sprain (ED), R.I.C.E. Treatment (ED) Additional Instructions: You can take ibuprofen 200 mg, 3 tablets (600mg) every 6-8 hours as needed for pain, in addition to Tylenol 500 mg, 2 tablets (1,000mg) every 4-6 hours as needed for pain, but not to exceed 3 doses daily (3,000mg).? Continue wearing knee brace and use of crutches Contact primary care provider/orthopedics for further evaluation and treatment. Return back to emergency department any new or worsening symptoms or concerns. Prescriptions: No Action hydrocodone-acetaminophen 5-325 mg tablet 1 tab PO Q6H PRN (Reason: pain) Qty: 10 0RF ibuprofen 600 mg tablet 600 mg PO Q6H PRN (Reason: pain) Qty: 20 0RF fluticasone propionate [Flonase Allergy Relief] 50 mcg/actuation spray,suspension 2 spray intranasal DAILY Qty: 16 0RF Rx Instructions: administer into each nostril albuterol sulfate [ProAir HFA] 90 mcg/actuation HFA aerosol inhaler 2 puff inhalation Q4-6H PRN (Reason: shortness of breath or wheezing) Qty: 6.7 0RF cetirizine 10 mg tablet 10 mg PO DAILY Qty: 20 0RF sulfamethoxazole-trimethoprim [Bactrim DS] 800-160 mg tablet 1 tab PO BID Qty: 19 0RF prednisone 20 mg tablet 40 mg PO DAILY Qty: 10 0RF Referrals: Yaritza Louis PA-C [Physician [employer]or [employer]er] - Garrison Marinelli MD [Primary Care Provider] -
[2023-03-03 22:00] VITALS: BP 116/79; PULSE 74; RESP 12; O2SAT 97
== END 2023-03-03 23:16 | disposition home or self-care (01) ==
PROVIDERS: Emergency Provider Internal Medicine; PCP Internal Medicine
DX: S83.92XA Sprain of unspecified site of left knee, initial encounter (principal); W10.8XXA Fall (on) (from) other stairs and steps, initial encounter; Y93.9 Activity, unspecified; Y92.9 Unspecified place or not applicable; Y99.9 Unspecified external cause status
CPT/HCPCS: 73562; 99283; 99284

== ENCOUNTER 2023-03-13 08:44 | Outpatient (AMB) | payer OTHER, SELFPAY ==
--- NOTE | 2023-03-13 08:55 | A.OFFVIS_ITS ---
Intake Vital Signs 03/13/23 09:05 Height 5 ft 7 in Weight 158 lb BMI 24.7 Intake Visit Reasons: New Prob- Left knee pain Intake Note: Rosalba duncan 37 year old female presents today for an evaluation of left knee pain, DOI 03/01/23. Patient reports that she had a fall on metal bleachers landing on her knee. She presented to [facility] ED a couple of days later due to her pain and was referred to orthopedics. Currently her pain increases with activity such as prolong walking and standing. Her pain is located in the anterior aspect of knee. Occasional numbness and tingling in her leg. Finds that icing does not provide relief. She purchased an OTC knee brace and has been using since her injury. Allergies No Known Allergies Allergy (Verified 02/17/20 13:55) Medication List - Last Reconciled 03/13/23 by Chana Saldivar PA-C albuterol sulfate 90 mcg/actuation (ProAir HFA) 2 puffs inhalation Q4-6H PRN cetirizine 10 mg PO DAILY citalopram 10 mg PO DAILY fluticasone propionate 50 mcg/actuation (Flonase Allergy Relief) 2 sprays intranasal DAILY ibuprofen 600 mg PO Q6H PRN prednisone 40 mg (2 x 20 mg) PO DAILY sulfamethoxazole-trimethoprim 800-160 mg (Bactrim DS) 1 tab PO BID HPI New Prob- Left knee pain HPI Details 37-year-old [facility] pain s/p fall on metal bleachers & landing on her knee, 03/01/23. She was seen at ED about 2 days later for her pain where she was referred to our office. She currently states she has pain at the anterior aspect of her knee which is aggravated with prolonged walking and standing. She reports she is unable to weight bear or straighten her leg and walks on her tippy toes due to the pain. She also c/o occasional numbness and tingling in her leg and experienc es her knee giving out with weight bearing. She finds no relief with icing. She is using a OTC knee brace since DOI with benefits. She has a history of left knee injury while playing football. [facility] Medical History Asthma Surgical History Hx of appendectomy Family History Mother No problems noted. Father No problems noted. 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 Tenderness along the medial and lateral joint line. Full ROM with crepitus. Negative Joan?s. Trace laxity on the left knee when compared to the contralateral side. NVI. Results Reviewed Results Reviewed: X-rays of the left knee obtained in the office today are negative for any acute or chronic abnormality. Joint space well preserved. Assessment & Plan Assessment & Plan (1) Internal derangement of left knee: Code(s): M23.92 - Unspecified internal derangement of left knee Plan An MRI of the left knee has been ordered to further evaluate the ligamentous structures. She will avoid any irritating factors for her knee. She will continue wearing her left knee brace to help with her stability. I did give her a note for closer parking at work. She will see us back once the scan is complete. Orders: Orders XR knee standing BI Today M25.561 - Pain in right knee, M25.562 - Pain in left knee XR knee LT 1V Today M25.562 - Pain in left knee MR knee LT wo con Today M23.92 - Unspecified internal derangement of left knee Patient Instructions: Scribed for Chana Saldivar PA-C, by Andrea Ahmadi medical sales specialist, on 03/13/2023 at 8:45 AM Chana DOMINGUEZ PA-C, have personally reviewed and agree with the information entered by the scribe. Coding Level of Care Code Est Pt Level 3 (18166) Diagnoses Internal derangement of left knee M23.92
[2023-03-13 09:05] VITALS: BMI 24.7
== END 2023-03-13 09:21 | disposition home or self-care (01) ==
PROVIDERS: PCP Internal Medicine; Visit Provider Physician Assistant
DX: M23.92 Unspecified internal derangement of left knee (principal)
CPT/HCPCS: 99213

== ENCOUNTER 2023-03-13 10:23 | Outpatient (REF) | payer OTHER, SELFPAY ==
--- NOTE | ~2023-03-13 | XR_ITS ---
EXAMINATION: XR KNEE AP STANDING, BILATERAL XR KNEE, LEFT CLINICAL INFORMATION: Pain in left knee. COMPARISON: Left knee 03/03/2023. TECHNIQUE: AP bilateral standing view of the knees was obtained. Robbins view of the left patella. FINDINGS: Single AP standing view of the right knee demonstrates mild medial joint space narrowing with mild medial degenerative changes. Minimal medial joint space narrowing on standing AP view of the left knee. XR/XR knee standing BI IMPRESSION: Mild medial joint space narrowing right knee. Minimal medial joint space narrowing left knee.
--- NOTE | ~2023-03-13 | XR_ITS ---
EXAMINATION: XR KNEE AP STANDING, BILATERAL XR KNEE, LEFT CLINICAL INFORMATION: Pain in left knee. COMPARISON: Left knee 03/03/2023. TECHNIQUE: AP bilateral standing view of the knees was obtained. Marissa view of the left patella. FINDINGS: Single AP standing view of the right knee demonstrates mild medial joint space narrowing with mild medial degenerative changes. Minimal medial joint space narrowing on standing AP view of the left knee. XR/XR knee LT 1V IMPRESSION: Mild medial joint space narrowing right knee. Minimal medial joint space narrowing left knee.
== END 2023-03-13 10:24 | disposition home or self-care (01) ==
LOC: HO.HOSX 10:23
PROVIDERS: Visit Provider Physician Assistant
DX: M25.562 Pain in left knee (principal); M23.92 Unspecified internal derangement of left knee; M25.561 Pain in right knee; Z79.899 Other long term (current) drug therapy
CPT/HCPCS: 73560; 73565; 99212

== ENCOUNTER 2023-03-25 07:16 | Outpatient (REF) | payer OTHER, SELFPAY ==
--- NOTE | ~2023-03-25 | MR_ITS ---
EXAMINATION: MR KNEE WITHOUT CONTRAST, LEFT CLINICAL INFORMATION: Left knee pain and swelling. Internal derangement. COMPARISON: Left knee radiographs dated 03/13/2023. TECHNIQUE: MRI of the knee without contrast was performed using routine sequences on a high-field scanner. FINDINGS: MENISCI: Medial Meniscus: Intact. Lateral Meniscus: Intact. LIGAMENTS: Cruciate: Complete versus near-complete full-thickness tear of the anterior cruciate ligament with diffuse heterogeneity of the torn ligament fibers and adjacent soft tissue edema. Intact posterior cruciate ligament. Collateral: Intact. EXTENSOR MECHANISM: Intact. ARTICULAR CARTILAGE/BONE: Patellofemoral Compartment: Focal inferior medial trochlea articular cartilage signal heterogeneity. Medial Compartment: Marrow edema at the posterior aspect of the medial tibial plateau, consistent with an osseous contusion. Intact articular cartilage. Lateral Compartment: Marrow edema at the sulcus terminalis, consistent with an osseous contusion. Intact articular cartilage. JOINT FLUID AND BURSAE: Small joint effusion. MR/MR knee LT wo con IMPRESSION: 1. Acute, complete versus near-complete tear of the anterior cruciate ligament. 2. Osseous contusions at the posterior aspect of the medial tibial plateau as well as at the sulcus terminalis. 3. Small joint effusion. 4. No meniscal tear.
== END 2023-03-25 07:17 | disposition home or self-care (01) ==
LOC: HO.MRI 07:16
PROVIDERS: Visit Provider Physician Assistant
DX: M23.92 Unspecified internal derangement of left knee (principal)
CPT/HCPCS: 73721

== ENCOUNTER 2023-04-15 12:43 | Outpatient (AMB) | payer OTHER, SELFPAY ==
--- NOTE | 2023-04-15 12:43 | A.OFFVIS_ITS ---
Intake Intake Visit Reasons: ov- MRI Knee LT review Intake Note: Rosalba a 37 year old female presents today for an MRI review of left knee. She states her left knee is still bothering her. Allergies No Known Allergies Allergy (Verified 04/15/23 12:43) HPI ov- MRI Knee LT review HPI Details 37 yo female f/u MRI left knee. She stat es she has not been able to snow board or play sports due to instability. She has mild pain but states it is not limiting her, she states she has full ROM . 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 [facility] Medical History Asthma Surgical History Hx of appendectomy Family History Mother No problems noted. Father No problems noted. 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 Acute, complete versus near-complete tear of the anterior cruciate ligament. 2. Osseous contusions at the posterior aspect of the medial tibial plateau as well as at the sulcus terminalis. 3. Small joint effusion. 4. No meniscal tear. Assessment & Plan Assessment & Plan (1) Tears of meniscus and ACL of left knee: Code(s): S83.207A - Unspecified tear of unspecified meniscus, current injury, left knee, initial encounter; S83.512A - Sprain of anterior cruciate ligament of left knee, initial encounter Qualifiers: Encounter type: initial encounter Qualified Code(s): S83.207A - Unspecified tear of unspecified meniscus, current injury, left knee, initial encounter; S83.512A - Sprain of anterior cruciate ligament of left knee, initial encounter Plan We discuss the results of her MRI today. Because she is symptomatic with instability she would like to proceed with surgical intervention. I briefly explained her what consists of an ACL reconstruction along with time she will stay in rehab and the recovery time she would have. She is content with the plan and proceed accordingly for a preop appointment with Dr. Corral. Patient Instructions: Scribed for Chana Saldivar PA-C, by Andrea Ahmadi medical office rep, on 04/15/2023 at 1:00 PM ARRON. Sapna, Chana Saldivar PA-C, have personally reviewed and agree with the information entered by the scribe. Telehealth Telehealth Location of provider rendering services: practice address Location of patient: address on file Patient Identification confirmed using: Name, : Yes Telehealth method: voice only Patient verbally consented to treatment: Yes Patient verbally consented to billing insurance company: Yes Patient informed of any privacy concerns related to visit: Yes Minutes spent on Phone/Video with Pt.: 15 Coding Level of Care Code Tele Est Pt Level 3 (51611) Diagnoses Tears of meniscus and anterior cruciate ligament of left knee, initial encounter S83.207A; S83.512A Encounter type: initial encounter
== END 2023-04-15 13:29 | disposition home or self-care (01) ==
LOC: HO.HOS 12:44
PROVIDERS: PCP Internal Medicine; Visit Provider Physician Assistant
DX: S83.207A Unspecified tear of unspecified meniscus, current injury, left knee, initial encounter (principal); S83.512A Sprain of anterior cruciate ligament of left knee, initial encounter
CPT/HCPCS: 99213

== ENCOUNTER → 2023-04-15 12:43 | Outpatient (BNVA) | payer OTHER, SELFPAY | PROVIDERS: PCP Internal Medicine; Visit Provider Physician Assistant ==

== ENCOUNTER 2023-05-01 12:22 | Outpatient (AMB) | payer OTHER, SELFPAY ==
--- NOTE | 2023-05-01 12:25 | A.OFFVIS_ITS ---
Intake Vital Signs 05/01/23 12:29 Height 5 ft 7 in Weight 158 lb BMI 24.7 Intake Visit Reasons: OV - Discuss LT knee ACL surgery Intake Note: Rosalba is a 37 year old female who presents today for a follow up of her left knee to discuss surgical intervention. She was last seen with Chana on 04/15/23 who interpreted her MRI results which showed a Left Knee ACL tear. Allergies No Known Allergies Allergy (Verified 05/01/23 12:29) HPI OV - Discuss LT knee ACL surgery HPI Details Rosalba is a 37 year old female who presents today for a follow up of her left knee to discuss surgical intervention. She was last seen with Chana on 04/15/23. SHe was playiung flag football ~ 4 weeks ago and was tackled from the side and sustained a valgus twisting injury. She heard a pop and tried to continue. Her knee swelled and she has since been unable to return to nl activities. She is very active. She works out regularly. [facility] Medical History Asthma Surgical History Hx of appendectomy Family History Mother No problems noted. Father No problems noted. 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 Resp Other: No audible wheezing Effort & Inspection: normal respiratory effort Back/Spine/Pelvis Cervical Spine: normal cervical lordosis Skin General skin exam: no rashes or lesions noted Neuro General: no focal motor deficits Extrem Other: + pivot shift 2+ clark's Minimal effusion No joint line tenderness Psych Appearance: grossly normal and well kempt Mental Status: mental status grossly normal Speech and movement: Normal speech and movement present Affect: normal affect Attitude: cooperative Results Reviewed Results Reviewed: I personally reviewed the MR images. Acute, complete versus near-complete tear of the anterior cruciate ligament. 2. Osseous contusions at the posterior aspect of the medial tibial plateau as well as at the sulcus terminalis. 3. Small joint effusion. 4. No meniscal tear. Assessment & Plan Assessment & Plan (1) Complete tear of anterior cruciate ligament of left knee: Code(s): S83.512A - Sprain of anterior cruciate ligament of left knee, initial encounter Plan: This is a 37 yo F with an ACL rupture of the left knee. She sustained this playing football. She is very physically active with sports and I recommend ACL reconstruction. I discussed this with her and we reviewed the different graft op tions. She would like to proceed forward with hamstring autograft. I discussed the risks benefits and alternatives including but not limited to the risk of pain, infection, stiffness, graft failure, inability to return to prior level of activity and the need for further surgery as well as potential medical complications such as blood clots, pulmonary embolism. She expressed understanding. We will have an autograft available for the case as well. Coding Level of Care Code Est Pt Level 4 (62794) Diagnoses Complete tear of anterior cruciate ligament of left knee S83.512A
[2023-05-01 12:29] VITALS: BMI 24.7
== END 2023-05-01 12:50 | disposition home or self-care (01) ==
PROVIDERS: PCP Internal Medicine; Visit Provider Orthopaedic Surgery
DX: S83.512A Sprain of anterior cruciate ligament of left knee, initial encounter (principal)
CPT/HCPCS: 99214

== ENCOUNTER → 2023-05-01 12:22 | Outpatient (BNVA) | payer OTHER, SELFPAY | PROVIDERS: PCP Internal Medicine; Visit Provider Orthopaedic Surgery | DX: S83.512A Sprain of anterior cruciate ligament of left knee, initial encounter (principal); X50.1XXA Overexertion from prolonged static or awkward postures, initial encounter; Y93.62 Activity, american flag or touch football; Y92.9 Unspecified place or not applicable; Y99.9 Unspecified external cause status | CPT/HCPCS: 99212 ==

== ENCOUNTER 2023-06-25 11:00 | Outpatient (AMB) | payer OTHER, SELFPAY ==
--- NOTE | 2023-06-25 11:04 | A.OFFVIS_ITS ---
Intake Visit Reasons: Preop LT ACL reconstruction 07/01/23 NE Intake Note: Rosalba is a 37 year old female who presents today for a pre op appointment for her LT ACL reconstruction 07/01/23 NE. Patient was wondering about if she can get a script for a wheel chair to help her move around. Allergies No Known Allergies Allergy (Verified 06/25/23 11:04) HPI HPI Preop LT ACL reconstruction 07/01/23 NE: Details: 37-year-old right hand dominant female who presents in the office today for her preoperative history and physical exam prior to a left ACL reconstruction to be performed on 07/01/[address] Romario Corral. Patient would like to request a prescription for a wheelchair to help her move around after surgery. Patient has no known allergy history. Patient is currently taking, as follows: -Albuterol sulfate 90 mcg/actuation 2 puffs inhalation Q4-6H PRN -Cetirizine 10 mg PO daily -Citalopram 10 mg PO daily -Fluticasone propionate 50 mcg/actuation 2 sprays intranasal daily -Ibuprofen 600 mg PO Q6H PRN Patient has a medical history, as follows: -Asthma Patient has a surgical history, as follows: - Hx of appendectomy PFSH Medical History Asthma Surgical History Hx of appendectomy Family History Mother No problems noted. Father No problems noted. 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 Resp Other: No audible wheezing Effort & Inspection: normal respiratory effort and able to speak in complete sentences Cardio Rate: regular rate Peripheral pulses: Peripheral pulses 2+ throughout GI Inspection: Yes normal to inspection Palpation (GI): Soft to palpation Back/Spine/Pelvis Cervical Spine: normal cervical lordosis Skin General skin exam: no rashes or lesions noted Neuro General: patient oriented x3 Extrem Other: Left lower extremity: Skin is clean and intact. + pivot shift 2+ clark's Minimal effusion No joint line tenderness Psych Appearance: grossly normal and well kempt Mental Status: mental status grossly normal Speech and movement: Normal speech and movement present Affect: normal affect Attitude: cooperative Assessment & Plan Assessment & Plan (1) Complete tear of anterior cruciate ligament of left knee: Code(s): S83.512A - Sprain of anterior cruciate ligament of left knee, initial encounter Category: Medical Qualifiers: Encounter type: subsequent encounter Qualified Code(s): S83.512D - Sprain of anterior cruciate ligament of left knee, subsequent encounter Plan Ms. Qiu is a 37-year-old right hand dominant female who presents in the office today for her preoperative history and physical exam prior to a left ACL reconstruction to be performed on 07/01/[address] Romario Corral. Patient would like to request a prescription for a wheelchair to help her move around after surgery. Patient has no known allergy history. Patient is currently taking, as follows: -Albuterol sulfate 90 mcg/actuation 2 puffs inhalation Q4-6H PRN -Cetirizine 10 mg PO daily -Citalopram 10 mg PO daily -Fluticasone propionate 50 mcg/actuation 2 sprays intranasal daily -Ibuprofen 600 mg PO Q6H PRN - Understands to discontinue now to a void bleeding during the surgery Patient has a medical history, as follows: -Asthma Patient has a surgical history, as follows: - Hx of appendectomy I discussed in detail the procedure and what to expect pre and post operatively. We discussed the risks, benefits and alternatives to the surgery and the rehabilitation course. The risks include infection, bleeding, nerve injury, ongoing pain, swelling, and stiffness, perioperative risk of injury to bones and soft tissues, and blood clots. I have answered all questions and with their understanding they have consented to move forward with a left ACL reconstruction to be performed on 07/01/[address] Romario Corral. Post operative medications were sent to the pharmacy, Oxycodone-acetaminophen 5-325 mg (Percocet) PO Q4-6H PRN, quantity 42 tabs for 7 days and Morphine ER 15 mg (MS Contin) PO Q12H PRN, quantity 6 tabs for 3 days, while in the office today. The patient was instructed that she should obtain the prescription prior to surgery but should not consume until after the procedure; as these should only be taken for post operative pain management. Should the patient take these medications before surgery, a refill will not be sent to the pharmacy until their scheduled refill date. She was fit for the TROM brace for post operative immobilization, off the shelf. Patient is inquiring about an ice machine, which the office will reach out to the supplier to see if we can obtain this for her. Also, she has a family member who is graduating and I have given her a note stating she will require a close parking spot and handicap accessible seating. Follow-up will be at the post operative appointment on 07/09/2023 at 1:30 pm, or sooner if needed. Medications: New morphine ER (MS Contin) Partial Fill upon patient request. 15 mg PO Q12H 6 tabs 0RF 3 days oxycodone-acetaminophen 5-325 mg (Percocet) Partial Fill upon patient request. 1 tab PO Q4-6H PRN 42 tabs 0RF pain 7 days Patient Instructions: Scribed by Kelly Donovan medical office technologist, for Yaritza Louis PA-C on 06/25/2023 at 11:02 am, EST. Coding Level of Care Code Global (41730) Diagnoses Complete tear of anterior cruciate ligament of left knee, subsequent encounter S83.512D Encounter type: subsequent encounter
== END 2023-06-25 11:49 | disposition home or self-care (01) ==
PROVIDERS: PCP Internal Medicine; Visit Provider Physician Assistant
DX: S83.512D Sprain of anterior cruciate ligament of left knee, subsequent encounter (principal)
CPT/HCPCS: 99024

== ENCOUNTER → 2023-06-25 11:00 | Outpatient (BNVA) | payer OTHER, SELFPAY | PROVIDERS: PCP Internal Medicine; Visit Provider Physician Assistant ==

== ENCOUNTER 2023-07-01 07:29 | Day surgery (SDC) | payer OTHER, SELFPAY ==
--- NOTE | 2023-06-29 14:12 | P.CONAN_ITS ---
Documented by User: Luli Polk NP 06/29/23 14:13 HPI - Anesthesia Eval Consult details Narrative: 37yo F for Left ACL Reconstruction with auto and allograft PMFSH Active Problems Active Problems: All Active Problems Complete tear of anterior cruciate ligament of left knee (Acute) Tears of meniscus and ACL of left knee (Acute) Internal derangement of left knee (Acute) Fracture of fifth metatarsal bone with routine healing (Acute) Fracture of fifth metatarsal bone (Acute) Past Medical History Medical History Asthma Family History Family History Mother No problems noted. Father No problems noted. 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 Father No problems noted. 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 Meds Allergies Allergy/AdvReac Type Severity Reaction Status Date / Time No Known Allergies Allergy Verified 06/25/23 11:04 Home Medications ?Medication ?Instructions ?Recorded ?Confirmed ?Last Taken ?Type citalopram 10 mg tablet 10 mg PO DAILY 02/22/20 Unknown History Exam Airway Mallampati Class: II TM Dist: >3cm Neck ROM: Full Heart: rrr Lungs: cta Assessment and Plan Assessment Anesthesia Assessment: Anesthesia Plan Discussed Final Anesthetic Review Family History of Problems with Anesthesia: No History of Problems with Anesthesia: No NPO: Yes ASA Class: II (marihuana user, asthma) Final Preanesthetic Review: No Changes in Pt Med Stat, Meds/Allgs Chart Reviewe d, Consent Obtained/Reviewed and Anes Risks/Benef Reviewed Patient Risk: Low Procedure Risk: Intermediate Anesthetic Plan Anesthetic Plan: GA and Regional Block Disposition: Standard PACU
[2023-07-01 07:49] VITALS: BP 110/76; PULSE 78; RESP 18; TEMP 36.6; O2SAT 98; BMI 25.4
[2023-07-01 07:59] LABS: UPreg QC Valid YES; Urine Pregnancy NEGATIVE (NEGATIVE)
[2023-07-01] MEDS: Lactated Ringers 1,000 ML 100 ML IVCONT (08:05)
--- NOTE | 2023-07-01 08:30 | MHC.SHP ---
Pre-Procedural Eval Section A - 24 Hr Update-Section A only Date of Service: 07/01/23 The patient is an INPATIENT: No Changes since office visit: No Cold of Flu in the past 2 weeks, No New Medical Problems, No Changes in Medication and No Patient answered all questions The patient has been examined within 24 hours of the surgical procedure. The History & Physical has been completed within 30 days and I have reviewed it.: Yes Section B - Complete if H&P > 30 days Chief Complaint: Unspecified tear of unspecified meniscus, current Allergies: Allergies Allergy/AdvReac Type Severity Reaction Status Date / Time No Known Allergies Allergy Verified 06/25/23 11:04 Plan I have reviewed the history and physical and performed a pertinent physical examination on my patient. No changes have occurred unless specified. Time Spent With Patient Time: Total time managing care of this patient today ____ minutes.
[2023-07-01 12:32] VITALS: BP 108/51; PULSE 87; RESP 16; TEMP 36.6; O2SAT 100
[2023-07-01 12:37] VITALS: BP 105/70; PULSE 61; RESP 16; O2SAT 100
[2023-07-01 12:42] VITALS: BP 104/68; PULSE 56; RESP 16; O2SAT 100
[2023-07-01] MEDS: ondansetron HCL 4 MG/2 ML VIAL IVPUSH (12:45)
[2023-07-01 12:47] VITALS: BP 104/68; PULSE 76; RESP 16; O2SAT 100
[2023-07-01 13:00] VITALS: BP 104/64; PULSE 55; RESP 16; TEMP 36.4; O2SAT 100
--- NOTE | 2023-07-01 13:28 | P.OP_ITS ---
Operative Note Operative Note Date of Service: 07/01/23 Narrative: Date of Service: 07/01/23 Pre-op diagnosis: Left ACL tear Post-op diagnosis: same Procedure: Left ACL with Hamstring autograft and allograft Implants: [employer] femoral button and tibial interference screw Surgeon: Romario Corral MD Anesthesia: GETA and regional Was an Phonograph Needle Tip Maker used for this Procedure?: Yes Phonograph Needle Tip Maker: Yaritza Louis Estimated blood loss (mL): 50 Tourniquet time (min): 45 IV fluids (mL): 1,000 Pathology: none sent Condition: stable Disposition: PACU Procedure in detail: Patient was brought to the operating room placed supine on the arthroscopic table and prepped and draped in standard sterile fashion. A time-out was called to identify proper site proper procedure proper surgeon and IV antibiotics per weight were administered. Under anesthesia she had a + pivot shift. I began by making a 2 cm oblique incision over the pes anserine bursa. The sartorius fascia was identified and incised and the semitendinosis was identified, whip stitched and, using a tyendon stripped, removed. The gracilis was then identified and similarly removed. The gracilius was dimniutive and double over they fit through a 6mm graft passer. The decision was then made to open the allograft and these were prepared on the back table. I began by exsanguinating the limb and insufflating tourniquet to 300 mm Hg. Then made a standard anterolateral stab incision. The knee was insufflated with water and 30 degree arthroscope was placed. There was grade 1 fibrillations of the patella but overall suprapatellar pouch and the gutters were clean. I descended into the medial compartment where I made my far medial portal under direct visualization. There was a normal medial meniscus. The root was intact and there were cartilage changes in the medial compartment. I then examined the notch where there was a + empty wall sign and an intact PCL. The lateral compartment was pristine. I debrided the stump and acl footprint and performed a limited notchplasty. I then, through a far AM portal and a 7mm behind the back guide, drilled a k-wire through the LFC with the knee in hyper-flexion. I measured the tunnel as a 44 and then after sizing the allograft on the back table drilled a 35 mm tunnel wi th an 11 mm reamer. The final 9 mm was drilled with a 4.5 reamer. I then pulled a suture through the femoral tunnel and turned my attention to the tibia. I did examine the femoral tunnel and was satisfied with the posterior wall and its location low and medial at the anatomic footprint. I placed my tibial drill guide in 55 deg and, through a anteromedial inc just lateral to the tibial tubercle placed a k-wire into the notch exiting just medial to the anterior horn insertion of the lateral meniscus. I then over-reamed with an 11 reamer. I cleaned the tunnels up with a shaver. On the back table I whip-stitched the allograft to fit through an 11 aperture and attached the femoral button to the looped end. I placed the graft on 15lbs of tension for 10 minutes. I then passed the hybrid grafdt through the tibial tunnel and femoral tunnel and flipped the button. I cycled the knee about 10-15 cycles and then placed a tibial interference screw with the knee in hyper-extension while holding the graft taught. Once I was satisfied that the interference screw was buried I examined the ACL and the medial meniscus repair. The repair was stable and the ACL was not impinging and there was a negative pivot shift. I then removed all instrumentation and closed the incisions with nylon. Patient was then placed in sterile dressings and a hinged knee brace. She was then extubated brought recovery room stable condition. There were no known complications.
== END 2023-07-01 14:10 | disposition home or self-care (01) ==
LOC: HO.SSS 07:29
PROVIDERS: Nurse Practitioner; PCP Internal Medicine; Visit Provider Orthopaedic Surgery
PROC: (CPT 29888; principal; 2023-07-01 10:20)
DX: S83.512A Sprain of anterior cruciate ligament of left knee, initial encounter (principal); X58.XXXA Exposure to other specified factors, initial encounter; Y93.9 Activity, unspecified; Y92.9 Unspecified place or not applicable; Y99.8 Other external cause status; J45.909 Unspecified asthma, uncomplicated; Z79.51 Long term (current) use of inhaled steroids; Z79.1 Long term (current) use of non-steroidal anti-inflammatories (NSAID); Z90.49 Acquired absence of other specified parts of digestive tract; Z56.0 Unemployment, unspecified
CPT/HCPCS: 29888; 81025; C1713; C1762; J0131; J0665; J0690; J1100; J1596; J1885; J2250; J2405; J2704; J3010

== ENCOUNTER → 2023-07-01 07:29 | Outpatient (BNV) | payer OTHER, SELFPAY | PROVIDERS: PCP Internal Medicine; Visit Provider Orthopaedic Surgery | DX: S83.512A Sprain of anterior cruciate ligament of left knee, initial encounter (principal) | CPT/HCPCS: 29888 ==

== ENCOUNTER 2023-07-09 13:28 | Outpatient (AMB) | payer OTHER, SELFPAY ==
--- NOTE | 2023-07-09 13:30 | MHC.OFFVIS ---
Intake Visit Reasons: PO LT ACL reconstruction 07/01/23 NE Intake Note: Rosalba is a 37 year old female who presents today for a post op appointment s/p LT ACL reconstruction 07/01/23 NE. Patient has first PT tomorrow. She expresses having pain and soreness all over the knee. Having a little concern of having a bruise behind her knee and that it itches. Allergies No Known Allergies Allergy (Verified 07/09/23 13:35) HPI HPI PO LT ACL reconstruction 07/01/23 NE: Details: 37-year-old female who presents in the office today 8 days status post left knee ACL reconstruction with hamstring autograft and allograft, which was performed on 07/01/[address] Corral. While in the office today the patient reports she will attend her first physical therapy session tomorrow, 07/10/2023. She states she has pain and soreness over the entire left knee. She expresses concern about ecchymosis behind the left knee accompanied by itching. PFSH Medical History Asthma Surgical History Hx of appendectomy Family History Mother No problems noted. Father No problems noted. 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 Sutures intact. No surrounding erythema or drainage. No signs of infection. Moderate edema. ROM is 0-90 degrees. NVI. Assessment & Plan Assessment & Plan (1) Complete tear of anterior cruciate ligament of left knee: Comment: Left ACL reconstruction with hamstring autograft and allograft 07/01/2023 NE Code(s): S83.512A - Sprain of anterior cruciate ligament of left knee, initial encounter Category: Surgical Qualifiers: Encounter type: subsequent encounter Qualified Code(s): S83.512D - Sprain of anterior cruciate ligament of left knee, subsequent encounter Plan Ms. Qiu is a 37-year-old female who presents in the office today 8 days status post left knee ACL reconstruction with hamstring autograft and allograft, which was performed on 07/01/[address] Corral. While in the office today the patient reports she will attend her first physical therapy session tomorrow, 07/10/2023 at 10:00am. She states she has pain and soreness over the entire left knee. She expresses concern about ecchymosis behind the left knee accompanied by itching. Sutures were removed, and steri-stripes were applied. The patient was placed back into the brace in the office today. Patient will continue to work with physical therapy. She may discontinue the use of the brace once quad control allows. Follow up will be in 4 weeks, or sooner if needed. Orders: Orders PT Evaluation and Treatment 07/02/23 S83.207A - Unspecified tear of unspecified meniscus, current injury, left knee, initial encounter, S83.512A - Sprain of anterior cruciate ligament of left knee, initial encounter, S83.512D - Sprain of anterior cruciate ligament of left knee, subsequent encounter Patient Instructions: Scribed by Kelly Donovan medical donation professional, for Yaritza Louis PA-C on 07/09/2023 at 1:30 pm, EST. Coding Level of Care Code Global (06857) Diagnoses Complete tear of anterior cruciate ligament of left knee, subsequent encounter S83.512D Encounter type: subsequent encounter
== END 2023-07-09 13:55 | disposition home or self-care (01) ==
PROVIDERS: PCP Internal Medicine; Visit Provider Physician Assistant
DX: S83.512D Sprain of anterior cruciate ligament of left knee, subsequent encounter (principal)
CPT/HCPCS: 99024

== ENCOUNTER → 2023-07-09 13:28 | Outpatient (BNVA) | payer OTHER, SELFPAY | PROVIDERS: PCP Internal Medicine; Visit Provider Physician Assistant | DX: S83.512D Sprain of anterior cruciate ligament of left knee, subsequent encounter (principal); S83.207A Unspecified tear of unspecified meniscus, current injury, left knee, initial encounter; S83.512A Sprain of anterior cruciate ligament of left knee, initial encounter ==

== ENCOUNTER 2023-08-07 08:00 | Outpatient (AMB) | payer OTHER, SELFPAY ==
--- NOTE | 2023-08-07 08:03 | A.OFFVIS_ITS ---
Vital Signs 08/07/23 08:04 Height 5 ft 7 in Weight 160 lb BMI 25.1 Intake Visit Reasons: PO LT ACL reconstruction 07/01/23 NE Intake Note: Rosalba is a 37 year old female who presents today for a post op appointment s/p LT ACL reconstruction 07/01/23 NE. Patient reports that she is doing well, she has some mild discomfort and swelling at the end of the day. She reports that she has pain in the right ankle, she injured the right ankle quite some time ago and never had it looked at but now as this is her primary WB leg. Allergies No Known Allergies Allergy (Verified 07/09/23 13:35) HPI HPI PO LT ACL reconstruction 07/01/23 NE: Details: Rosalba is a 37 year old female who presents today for a post op appointment s/p LT ACL reconstruction 07/01/23 NE. Patient reports that she is doing well, she has some mild discomfort and swelling at the end of the day. She reports that she has pain in the right ankle, she injured the right ankle quite some time ago and never had it looked at but now as this is her primary WB leg. [facility] Medical History Asthma Surgical History Hx of appendectomy Family History Mother No problems noted. Father No problems noted. 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 I reviewed the 6 week recommendations and I would like to see her back in 6 weeks. Coding Level of Care Code Global (52746) Diagnoses Status post reconstruction of anterior cruciate ligament Z98.890
[2023-08-07 08:04] VITALS: BMI 25.1
== END 2023-08-07 08:25 | disposition home or self-care (01) ==
PROVIDERS: PCP Internal Medicine; Visit Provider Orthopaedic Surgery
DX: Z98.890 Other specified postprocedural states (principal)
CPT/HCPCS: 99024

== ENCOUNTER → 2023-08-07 08:00 | Outpatient (BNVA) | payer OTHER, SELFPAY | PROVIDERS: PCP Internal Medicine; Visit Provider Orthopaedic Surgery ==

== ENCOUNTER 2023-09-18 10:08 | Outpatient (AMB) | payer OTHER, SELFPAY ==
[2023-09-18 10:32] VITALS: BMI 25.1
--- NOTE | 2023-09-18 10:32 | MHC.OFFVIS ---
Vital Signs 09/18/23 10:32 Height 5 ft 7 in Weight 160 lb BMI 25.1 Intake Visit Reasons: PO LT ACL reconstruction 8 wk f/u 07/01/23 NE Intake Note: Rosalba is a 37 year old female who presents today for a post op appointment s/p LT ACL reconstruction 07/01/23 NE. Patient reports that she is doing well, she has no pain however in the last week she has felt an increase of instability. The knee has given out on her once recently. Allergies No Known Allergies Allergy (Verified 07/09/23 13:35) HPI HPI PO LT ACL reconstruction 8 wk f/u 07/01/23 NE: Details: Rosalba is doing OK. She was doing better but twisted awkwardly ~ 2 weeks ago and had some pain and swelling. It is improving but still swollen. She is doing PT and walking normally. [facility] Medical History Asthma Surgical History Hx of appendectomy Family History Mother No problems noted. Father No problems noted. 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 I will see her back in 4 weeks. Coding Level of Care Code Global (99292) Diagnoses Status post reconstruction of anterior cruciate ligament Z98.890
== END 2023-09-18 11:13 | disposition home or self-care (01) ==
PROVIDERS: PCP Internal Medicine; Visit Provider Orthopaedic Surgery
DX: Z98.890 Other specified postprocedural states (principal)
CPT/HCPCS: 99024

== ENCOUNTER → 2023-09-18 10:08 | Outpatient (BNVA) | payer OTHER, SELFPAY | PROVIDERS: PCP Internal Medicine; Visit Provider Orthopaedic Surgery ==

== ENCOUNTER 2023-10-22 08:40 | Outpatient (AMB) | payer OTHER, SELFPAY ==
--- NOTE | 2023-10-22 08:45 | A.OFFVIS_ITS ---
Intake Visit Reasons: LT ACL reconstruction 8 wk f/u 07/01/23 NE Intake Note: Rosalba is a 37 year old female who presents today for a post op appointment s/p LT ACL reconstruction 07/01/23 NE. 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 Pat ient reports that she is doing well, she is working on getting back to sports and she is unsure on how the knee should feel and what activities she can participate in. Allergies No Known Allergies Allergy (Verified 07/09/23 13:35) HPI HPI LT ACL reconstruction 8 wk f/u 07/01/23 NE: Details: Rosalba is a 37 year old female who presents today for a post op appointment s/p LT ACL reconstruction 07/01/23 NE. 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 Patient reports that she is doing well, she is working on getting back to sports and she is unsure on how the knee should feel and what activities she can participate in. [facility] Medical History Asthma Surgical History Hx of appendectomy Family History Mother No problems noted. Father No problems noted. 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 There is negative pivot shift and a stable 1- Andrew's/anterior drawer. Mild left quad atrophy compared to the right Assessment & Plan Assessment & Plan (1) Status post reconstruction of anterior cruciate ligament: Code(s): Z98.890 - Other specified postprocedural states Category: Surgical Plan: Status post ACL reconstruction left knee doing well. Continue physical therapy and strengthening. Follow up in 2 months. Coding Level of Care Code Est Pt Level 2 (58507) Diagnoses Status post reconstruction of anterior cruciate ligament Z98.890
== END 2023-10-22 09:13 | disposition home or self-care (01) ==
PROVIDERS: PCP Internal Medicine; Visit Provider Orthopaedic Surgery
DX: S83.512D Sprain of anterior cruciate ligament of left knee, subsequent encounter (principal); Z47.89 Encounter for other orthopedic aftercare
CPT/HCPCS: 99212

== ENCOUNTER → 2023-10-22 08:40 | Outpatient (BNVA) | payer OTHER, SELFPAY | PROVIDERS: PCP Internal Medicine; Visit Provider Orthopaedic Surgery ==

== ENCOUNTER 2023-10-26 13:44 | Outpatient (AMB) | payer OTHER, SELFPAY ==
--- NOTE | 2023-10-26 14:33 | AM.OFFWIN_ITS ---
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 Started Thursday. Patient Tobacco Use Status: Never used Tobacco Allergies No Known Allergies Allergy (Verified 10/26/23 14:34) Do you need a note to return to daycare/school/sports/work: No HPI HPI Comments History of Present Illness Details Patient presents to the walk in for 3 days cough, congestion, fatigue, fever, diarrhea Denies known sick contacts Took a COVID test at home and it was positive, knees and over work Denies chest pain, shortness of breath, palpitations, syncope, weakness Also requesting refill of her albuterol MDI COUNT INCLUDES THE [facility] Medical History Asthma Surgical History Hx of appendectomy Family History Mother No problems noted. Father No problems noted. 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 Answers questions appropriately. Fully engaged in examination. Skin: warm, dry, intact HEENT: TMs intact bilaterally, no redness. Posterior pharynx without erythema or exudate. Sclera without icterus or injection. Cardiac: External chest normal in appearance. Respiratory: +cough. LSCTAB. Abdomen: without gross distension. Neurological: Oriented to person, place, time and situation. Thought process intact. Psychiatric: Appropriate mood and affect. Good judgment and insight. Assessment & Plan Assessment & Plan (1) URI (upper respiratory infection): Code(s): J06.9 - Acute upper respiratory infection, unspecified Plan URI, no abx warranted. SARS-CoV2/FLU/RSV swab collected, results pending. Patient aware she will be called with results. Benzonatate 100mg po bid as needed Refill sent done albuterol MDI Rest, drink plenty of fluids, tylenol or motrin as needed. Recommend taking OTC nasal decongestants Work note provided Follow up with pcp or in clinic for any new or worsening symptoms. Go to ER for shortness of breath, chest pain, palpitations, weakness, dizziness. Orders: Orders SARS-CoV2/FLU/RSV Today J06.9 - Acute upper respiratory infection, unspecified Medications: New benzonatate 100 mg PO BID PRN 20 caps 0RF cough albuterol sulfate 90 mcg/actuation 2 puffs inhalation Q6H PRN 8.5 grams 0RF shortness of breath or wheezing Coding Level of Care Code Est Pt Level 3 (56314) Diagnoses URI (upper respiratory infection) J06.9
[2023-10-26 14:35] VITALS: BP 108/76; PULSE 74; TEMP 37.1; O2SAT 98; BMI 24.4
== END 2023-10-26 15:15 | disposition home or self-care (01) ==
PROVIDERS: PCP Internal Medicine; Visit Provider Registered Nurse Emergency
DX: J06.9 Acute upper respiratory infection, unspecified (principal)
CPT/HCPCS: 99213

== ENCOUNTER 2023-10-26 14:56 | Outpatient (REF) | payer OTHER, SELFPAY ==
[2023-10-26 17:36] LABS: Influenza A PCR NEGATIVE (Negative); Influenza B PCR NEGATIVE (Negative); Resp Syncy Virus RNA Qual PCR NEGATIVE (Negative); SARS COV2 PCR INHOUSE POSITIVE (Negative)
== END 2023-10-26 14:57 | disposition home or self-care (01) ==
LOC: HO.LAB 14:56
PROVIDERS: Visit Provider Registered Nurse Emergency
DX: J06.9 Acute upper respiratory infection, unspecified (principal)
CPT/HCPCS: 0241U

== ENCOUNTER 2023-11-23 10:00 | Outpatient (RCR) | payer OTHER, SELFPAY ==
--- NOTE | 2023-07-03 12:27 | MHC.PT.EP ---
[facility] [place] Office [place] [facility] [place] [facility] [address] Robb Shi [address] [phone] F: [phone] F: [phone] F: [phone] F: [phone] Physical Therapy Plan of Care Date of Evaluation: 07/03/23 Date of Surgery: 07/01/23 Diagnosis: L ACL Repair with HS autograft/ allograft Assessment: 37 y/o female s/p L ACL repair with HS autograft/ allograft on 07/01/23. Initial injury occurred in 2023 playing flag football and followign continued knee buckling and weakness, pt elected for surgery. Currently ambulating NWB with B axillary crutches and has assistance with chores, dressing, driving, and is OOW on FLMA. Examination shows decreased strength with poor L quad set, decreased L knee ROM (0-2-30), swelling, and impaired gait pattern. Recommend PT 2x/week for 16 weeks to address impairments, implement HEP and optimize functional mobility. Pt would like to return to running, flag football, snowboarding, and PLOF. She is highly motivated Frequency and Duration: The patient will be seen 2x/week for 16 weeks Short Term Goals: Pt will demonstrate good VMO recruitment without extension lag in 4 weeks. Pt will demonstrate L knee flexion AROM to 90 deg in 4 weeks. Pt will demonstrate L knee extension AROM equal to R LE for symmetry with R knee in 4 weeks. Pt will demonstrate gait mechanics WNL in brace in 6 weeks. Pt will demonstrate B hip strength at least 4/5 for improved lumbopelvic stability in 6 weeks. Pt will demonstrate L knee passive flexion to 120 deg for improved ability to maintain sitting in 6 weeks. Custodial Goals: Pt will demonstrate ability to ambulate with normal gait mechanics without brace in 8 weeks. Pt will demonstrate L SLS EO x 15 sec and L SLS EO on foam x 15 sec for improved L knee proprioception in 10 weeks. Pt will demonstrate B hip strength at least 4+/5 in 10 weeks for improved lumbopelvic stability. Pt will demonstrate knee strength at least 4+/5 in 10 weeks. Pt will demonstrate L SL squat within 4 cm of RLE for decreased risk of reinjury in 12 weeks. Pt will demonstrate DL squat jump with good mechanics pending MD clearance in 14 weeks. Pt will be I with HEP and understand resistance progression Treatment Plan: Modalities to reduce pain, spasms and effusion. Manual therapy to restore motion and function. Therapeutic exercise to improve strength and flexibility. Neuromuscular re-education for posture and balance. Therapeutic activities to return to functional activities of daily living. Electronically signed by: Frances Crespo PT Please sign and return to therapist. Thank you for your referral.
--- NOTE | 2024-02-04 14:04 | MHC.PT.DC ---
[facility] [place] Office [place] Office [place] Office [address] Robb Shi [address] [phone] F: [phone] F: [phone] F: [phone] F: [phone] Physical Therapy Discharge Report Diagnosis: L ACL Repair with HS autograft/ allograft Date of Surgery: 07/01/23 Date of Evaluation: 07/03/23 Date of Discharge: 02/04/24 Treatments to Date: 30 Cancellations to Date: 2 No Shows to Date: 1 Discharge Status: Improved Function Independent with HEP Recommend MD Follow-up Discharge Summary: Pt with change in status after falling down 3 steps and sustaining L knee pain. MRI showed meniscal involvement. Pt had made significant gains and improvement with strength, coordination, gentle plyometrics movement at time of last attended visit. Pt has f/u planned with surgeon regarding change of status. Electronically signed by: Frances Crespo PT Please sign and return to therapist. Thank you for your referral.
== END 2024-02-04 14:04 | disposition home or self-care (01) ==
LOC: HO.PTCHIC 10:00
PROVIDERS: PCP Internal Medicine; Visit Provider Physician Assistant
DX: S83.512D Sprain of anterior cruciate ligament of left knee, subsequent encounter (principal); S83.207D Unspecified tear of unspecified meniscus, current injury, left knee, subsequent encounter
CPT/HCPCS: 97110; 97112; 97116; 97140; 97161; 97530; 97535

== ENCOUNTER 2023-12-18 10:01 | Outpatient (REF) | payer OTHER, SELFPAY ==
--- NOTE | ~2023-12-18 | XR_ITS ---
EXAMINATION: XR KNEE, LEFT CLINICAL INFORMATION: Left knee pain. COMPARISON: Left knee MRI dated 03/25/2023. TECHNIQUE: AP, lateral, and sunrise views of the left knee. FINDINGS: Postsurgical change consistent with anterior cruciate ligament reconstruction. No acute fracture or dislocation. No concerning lytic or blastic osseous lesion. No joint space narrowing or marginal osteophytes. No abnormal soft tissue calcification. Trace joint effusion. XR/XR knee LT 3V IMPRESSION: 1. Postsurgical change consistent with anterior cruciate ligament reconstruction. 2. Trace joint effusion. Electronically signed by: Ha Barreto MD 01/02/2024 12:25 PM [facility]
== END 2023-12-18 10:02 | disposition home or self-care (01) ==
LOC: HO.HOSX 10:01
PROVIDERS: Visit Provider Orthopaedic Surgery
DX: M25.562 Pain in left knee (principal)
CPT/HCPCS: 73562

== ENCOUNTER 2023-12-18 11:10 | Outpatient (AMB) | payer OTHER, SELFPAY ==
[2023-12-18 11:14] VITALS: BMI 24.4
--- NOTE | 2023-12-18 11:14 | MHC.OFFVIS ---
Vital Signs 12/18/23 11:14 Height 5 ft 7 in Weight 156 lb BMI 24.4 Intake Visit Reasons: OV-LT ACL reconstruction 8 wk f/u 07/01/23 NE Intake Note: Rosalba is a 37 year old female who presents today for a post op appointment s/p LT ACL reconstruction 07/01/23 NE. Patient reports that she was attending the gym with no problems but for the last few weeks she has had an increase of pain and is unable to full extend the knee. Allergies No Known Allergies Allergy (Verified 10/26/23 14:34) HPI HPI OV-LT ACL reconstruction 8 wk f/u 07/01/23 NE: Details: Rosalba is a 37 year old female who presents today for a post op appointment s/p LT ACL reconstruction 07/01/23 NE. Patient reports that she was attending the gym with no problems but for the last few weeks she has had an increase of pain and is unable to full extend the knee. She states she was doing well and was beginning to run but she missed a step and her knee has not felt the same since. [facility] Medical History Asthma Surgical History Hx of appendectomy Family History Mother No problems noted. Father No problems noted. 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 1+ Andrew Assessment & Plan Assessment & Plan (1) Status post reconstruction of anterior cruciate ligament: Code(s): Z98.890 - Other specified postprocedural states Category: Surgical Plan: Status post ACL reconstruction with a fall downstairs with loss of terminal extension and an effusion. MRI to assess graft. Orders: Orders MR knee LT wo con Today Z98.890 - Other specified postprocedural states XR knee LT 3V Today M25.562 - Pain in left knee Medications: New ibuprofen 800 mg PO TID PRN 90 tabs 2RF pain Coding Level of Care Code Est Pt Level 4 (94006) Diagnoses Status post reconstruction of anterior cruciate ligament Z98.890
== END 2023-12-18 11:36 | disposition home or self-care (01) ==
LOC: HO.HOS 11:10
PROVIDERS: PCP Internal Medicine; Visit Provider Orthopaedic Surgery
DX: M25.562 Pain in left knee (principal); S83.512D Sprain of anterior cruciate ligament of left knee, subsequent encounter
CPT/HCPCS: 99214

== ENCOUNTER 2023-12-27 19:59 | Outpatient (REF) | payer OTHER, SELFPAY ==
--- NOTE | ~2023-12-27 | MR_ITS ---
EXAMINATION: MR KNEE WITHOUT CONTRAST, LEFT CLINICAL INFORMATION: Left knee pain and swelling following a fall. Prior surgery. COMPARISON: Most recent left knee radiographs dated 12/18/2023 and MRI dated 03/25/2023. TECHNIQUE: MRI of the knee without contrast was performed using routine sequences on a high-field scanner. FINDINGS: MENISCI: Medial Meniscus: Intact Lateral Meniscus: Nondisplaced oblique inner margin tear of the meniscal body, new when compared to the prior examination. LIGAMENTS: Cruciate: Postsurgical change consistent with anterior cruciate ligament reconstruction. There is edema adjacent to the tibial component without erosion. Findings could represent a postsurgical result versus degenerative signal. No associated fracture line. No evidence of graft tear. Intact posterior cruciate ligament. Collateral: Intact EXTENSOR MECHANISM: Intact ARTICULAR CARTILAGE/BONE: Patellofemoral Compartment: Intact articular cartilage. Medial Compartment: Intact articular cartilage. Lateral Compartment: Intact articular cartilage. JOINT FLUID AND BURSAE: Trace joint effusion. MR/MR knee LT wo con IMPRESSION: 1. Nondisplaced oblique inner margin tear of the lateral meniscal body, new when compared to the prior examination. 2. Postsurgical change consistent with anterior cruciate ligament reconstruction. There is edema adjacent to the tibial component which could represent a postsurgical result versus degenerative signal. No evidence of graft tear. 3. Trace joint effusion. Electronically signed by: Ha Barreto MD 01/02/2024 12:24 PM [facility]
== END 2023-12-27 20:00 | disposition home or self-care (01) ==
LOC: HO.MRI 19:59
PROVIDERS: PCP Internal Medicine; Visit Provider Orthopaedic Surgery
DX: Z98.890 Other specified postprocedural states (principal)
CPT/HCPCS: 73721

== ENCOUNTER 2024-01-25 13:28 | Outpatient (AMB) | payer OTHER, SELFPAY ==
[2024-01-25 13:29] VITALS: BMI 24.4
--- NOTE | 2024-01-25 13:29 | MHC.OFFVIS ---
Vital Signs 01/25/24 13:29 Height 5 ft 7 in Weight 156 lb BMI 24.4 Intake Visit Reasons: TH-Left knee MRI review Intake Note: Rosalba is a 38 year old female who presents today for a follow up of her left knee, she is s/p Left Knee ACL Reconstruction 07/01/23. Patient took a fall down the stairs and an MRI was ordered to assess graft. Patient reports that she is having continued pain and swelling. Allergies No Known Allergies Allergy (Verified 10/26/23 14:34) HPI HPI TH-Left knee MRI review: Details: Rosalba is a 38 year old female who presents today for a follow up of her left knee, she is s/p Left Knee ACL Reconstruction 07/01/23. Patient took a fall down the stairs and an MRI was ordered to assess graft. She has been feeling okay with some mild persistent swelling and she has stopped physical therapy since her injury. ON LICENSE OF [facility] Medical History Asthma Surgical History Hx of appendectomy Family History Mother No problems noted. Father No problems noted. 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 IMPRESSION: 1. Nondisplaced oblique inner margin tear of the lateral meniscal body, new when compared to the prior examination. 2. Postsurgical change consistent with anterior cruciate ligament reconstruction. There is edema adjacent to the tibial component which could represent a postsurgical result versus degenerative signal. No evidence of graft tear. 3. Trace joint effusion. Assessment & Plan Assessment & Plan (1) Status post reconstruction of anterior cruciate ligament: Code(s): Z98.890 - Other specified postprocedural states Category: Surgical Plan: MRI of the left knee was reviewed and shows no evidence of graft tear. Question of edema and a new small lateral meniscus tear which may or may not be relevant. I discussed this with her. She would like to start going back to formal physical therapy and I think this is reasonable. She should return as per protocol. She should not return to work until she sees me for follow up. Orders: Orders PT Evaluation and Treatment Today Z98.890 - Other specified postprocedural states Coding Level of Care Code Tele New Pt Level 3 (09890) Diagnoses Status post reconstruction of anterior cruciate ligament Z98.890
== END 2024-01-25 14:24 | disposition home or self-care (01) ==
LOC: HO.HOS 13:28
PROVIDERS: PCP Internal Medicine; Visit Provider Orthopaedic Surgery
DX: S83.512D Sprain of anterior cruciate ligament of left knee, subsequent encounter (principal)
CPT/HCPCS: 99443

== ENCOUNTER → 2024-01-25 13:28 | Outpatient (BNVA) | payer OTHER, SELFPAY | PROVIDERS: PCP Internal Medicine; Visit Provider Orthopaedic Surgery ==

== ENCOUNTER 2024-02-26 09:58 | Outpatient (AMB) | payer OTHER, SELFPAY ==
--- NOTE | 2024-02-26 10:05 | MHC.OFFVIS ---
Intake Visit Reasons: OV- Left knee pain follow up Intake Note: Rosalba is a 38 year old female who presents today for a follow up of her left knee, she is s/p Left ACL Reconstruction 07/01/23. MRI was obtained and reviewed with patient s/p fall down stairs. She is to continue Physical therapy, returning per protocol. She remains out of work at this time. Patient currently reports that her pain has improved but she continues to struggle with stiffness. Allergies No Known Allergies Allergy (Verified 10/26/23 14:34) HPI HPI OV- Left knee pain follow up: Details: Rosalba is a 38 year old female who presents today for a follow up of her left knee, she is s/p Left ACL Reconstruction 07/01/23. MRI was obtained and reviewed with patient s/p fall down stairs. She is to continue Physical therapy, returning per protocol. She remains out of work at this time. Patient currently reports that her pain has improved but she continues to struggle with stiffness. 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 [facility] Medical History Asthma Surgical History Hx of appendectomy Family History Mother No problems noted. Father No problems noted. 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 Stable Andrew's. No pivot shift. Trace effusion. Her right knee hyperextends approximately 5 degrees. Assessment & Plan Assessment & Plan (1) Status post reconstruction of anterior cruciate ligament: Code(s): Z98.890 - Other specified postprocedural states Category: Surgical Plan: 8 months status post ACL reconstruction. She is doing okay with continued mild quad weakness and a sensation that she can not straighten her knee fully although compared to the right she can not hyperextended but she gets out to near 0 degrees on the left. I recommend she return to core and hip strengthening with stationary biking and dynamic PT. I would like her to return to physical therapy formally. She may return to work without restriction. I would like to see her back in 3 months. In Orders: Orders PT Evaluation and Treatment Today Z98.890 - Other specified postprocedural states Coding Level of Care Code Est Pt Level 3 (35584) Diagnoses Status post reconstruction of anterior cruciate ligament Z98.890
== END 2024-02-26 10:29 | disposition home or self-care (01) ==
PROVIDERS: PCP Internal Medicine; Visit Provider Orthopaedic Surgery
DX: S83.511D Sprain of anterior cruciate ligament of right knee, subsequent encounter (principal)
CPT/HCPCS: 99213

== ENCOUNTER 2024-05-30 10:35 | Outpatient (AMB) | payer OTHER, SELFPAY ==
--- NOTE | 2024-05-30 10:38 | A.OFFVIS_ITS ---
Vital Signs 05/30/24 10:39 Height 5 ft 7 in Weight 156 lb BMI 24.4 Intake Visit Reasons: OV- Left knee pain 3 month follow up Intake Note: Rosalba is a 38 year old female who presents today for a follow up of her left knee about 11 months s.p Left Knee ACL Reconstruction 07/01/23. 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 Patient reports that she is doing well Allergies No Known Allergies Allergy (Verified 05/30/24 10:39) HPI HPI OV- Left knee pain 3 month follow up: Details: Almost 1 year status post left ACL reconstruction. She states she is bothered by her knee but has no giving way and continues to workout 3 times a week. She rides a stationary bike for 30-45 minutes. She does strengthening exercises for her legs. 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 She denies pain but she is ?bothered? by her knee. She states it occasionally swells up. She denies giving way. She had to decrease her postop rehab a little bit because of her work and school. 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 [facility] Medical History Asthma Surgical History Hx of appendectomy Family History Mother No problems noted. Father No problems noted. 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 Stable Andrew's. Stable anterior drawer. Negative pivot shift. Stable to varus and valgus stress. Mild quad atrophy compared to the contralateral limb. Assessment & Plan Assessment & Plan (1) Status post reconstruction of anterior cruciate ligament: Code(s): Z98.890 - Other specified postprocedural states Category: Surgical Plan: Almost 1 year status post left knee replacement. She did have a setback with a fall many months after her surgery which she feels set her back but on exam she has a stable knee and the only identifiable issue is her quad atrophy. I recommend getting back into the gym for a more formal and regimented strengthening protocol. I wrote a prescription for therapy so they can help her with this as she seems to be having a difficult time doing this on her own. Coding Level of Care Code Est Pt Level 3 (17796) Diagnoses Status post reconstruction of anterior cruciate ligament Z98.890
[2024-05-30 10:39] VITALS: BMI 24.4
--- OUTSIDE RECORDS SUMMARY | 2024-05-30 12:13 | XMS_ITS | Clinical Summary ---
Author Organization [facility] ity Address [address] [place] [address] Care Team Providers Care Welder Gas Name Role Phone Negin Marx MD Primary Care Provider Unava ilable Social History Tobacco Use Types Packs/Day Years Used Date Smoking Tobacco: Never Assessed Comments Unknown Sex and Gender Information Value Date Recorded Sex Assigned at Not on file Legal Sex Female 8:29 PM EST Gender Identity Not on file Sexual Orientation Not on file Plan of Treatment Health Maintenance Due Date Last Done Comments DTaP,Tdap,and Td Vaccines (1 - Tdap) 12/30/2006 Hepatitis B Vaccines (1 of 3 - 19+ 3-dose series) 12/30/2006 Cervical Cancer Screening: P ap Smear 12/30/2008 COVID-19 Vaccine (2023-2 5 season) 2023 Influenza Vaccine (Season Ended) 2024 HIB Vaccines Aged Out No longer eligi ble based on patient's age to complete this topic HPV Vaccines Aged Out No longer eligi ble based on patient's age to complete this topic Hepatitis A Vaccines Aged Out No long er eligible based on patient's age to complete this topic IPV Vaccines Aged Out No longer eligi ble based on patient's age to complete this topic MMR Vaccines Aged Out No longer eligi ble based on patient's age to complete this topic Meningococcal ACWY Vaccine Aged Out N o longer eligible based on patient's age to complete this topic Meningococcal B Vaccine Aged Out No l onger eligible based on patient's age to complete this topic Pneumococcal Vaccine: Pediat rics (0 to 5 Years) and At-Risk Patients (6 to 64 Years) Aged Out No longer eligible b ased on patient's age to complete this topic RSV Immunization Patients Un elif 20 months Aged Out No longer eligible b ased on patient's age to complete this topic Varicella Vaccines Aged Out No longer eligible based on patient's age to complete this topic Care Teams Welder Gas Relationship Specialty Start Date End Date Negin Marx MD PCP - General Internal Medicine 09/17/16
== END 2024-05-30 11:11 | disposition home or self-care (01) ==
PROVIDERS: PCP Internal Medicine; Visit Provider Orthopaedic Surgery
DX: Z47.89 Encounter for other orthopedic aftercare (principal); S83.512D Sprain of anterior cruciate ligament of left knee, subsequent encounter; Z96.652 Presence of left artificial knee joint
CPT/HCPCS: 99213

== ENCOUNTER 2024-08-05 15:04 | Outpatient (RCR) | payer OTHER, SELFPAY ==
--- NOTE | 2024-06-15 15:50 | MHC.PT.EP ---
[facility] [place] Office [place] Office [place] Office [address] Robb Shi [address] [phone] F: [phone] F: [phone] F: [phone] F: [phone] Physical Therapy Plan of Care Date of Evaluation: 06/15/24 Date of Surgery: 07/01/23 Diagnosis: S/P L ACL RECONSTRUCTION 07/01/23 (HS AUTO/ALLO GRAFT) Assessment: Pt IS 38 YO F REFERRED TO PT FROM [facility] S/P L ACL RECONSTRUCTION 07/01/23. HAD LENGTHY PT (5 MONTHS) WITH GOOD RESULTS. THEN HAD A FALL DOWN STAIRS WITH FEELING OF RESIDUAL TIGHTNESS IN KNEE. Pt JUST SAW [facility] FOR FU AND WAS RE-REFERRED FOR HIGHER LEVEL WORK AND TO ASSIST RETURN/PROGRESS AT GYM. PT WOULD LIKE TO RETURN TO SPORTS ([employer]..WHICH IS WHERE SHE ORIGINALLY INJURED HER KNEE). PRESENTS TO PT WITH GOOD L LE ROM AND STRENGTH. SHOULD BENEFIT FROM PT TO HELP WITH HIGH LEVEL PROP AND RETURN TO SPORT ACTIVITIES Frequency and Duration: The patient will be seen 2X/WK X 4 WKS, THEN 1X/WK FOR 2 MORE WKS Short Term Goals: 1. INCREASED AWARENESS KNEE CARE 2. I HEP AND GYM PROGRAM Correction Goals: 1. Pt TO REPORT INCREASED STABILITY FOR RETURN TO SPORT Treatment Plan: Modalities to reduce pain, spasms and effusion. Manual therapy to restore motion and function. Therapeutic exercise to improve strength and flexibility. Neuromuscular re-education for posture and balance. Therapeutic activities to return to functional activities of daily living. Electronically signed by: ILEANA FRANCE PT Please sign and return to therapist. Thank you for your referral.
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
== END 2024-11-23 13:52 | disposition home or self-care (01) ==
LOC: HO.PT 15:04
PROVIDERS: PCP Internal Medicine; Visit Provider Orthopaedic Surgery
DX: Z98.890 Other specified postprocedural states (principal)
CPT/HCPCS: 97110; 97161; 97530

== ENCOUNTER 2024-08-15 18:18 | Emergency (ER) | payer OTHER, SELFPAY ==
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
[2024-08-15 18:23] VITALS: BP 123/81; PULSE 88; RESP 16; TEMP 37; O2SAT 99; BMI 25.1
[2024-08-15 18:38] LABS: UPreg QC Valid YES; Urine Pregnancy NEGATIVE (NEGATIVE)
[2024-08-15 20:17] VITALS: BP 118/77; PULSE 77; RESP 18; O2SAT 100
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
[2024-08-15] MEDS: SUMAtriptan succinate 50 MG TABLET PO (21:02)
[2024-08-15 21:41] VITALS: BP 116/86; PULSE 69; RESP 16; TEMP 36.6; O2SAT 100
[2024-08-15 21:42] VITALS: BP 116/86; PULSE 69; RESP 16; TEMP 36.6; O2SAT 100
== END 2024-08-15 21:43 | disposition home or self-care (01) ==
PROVIDERS: Physician Assistant Medical; Emergency Provider Emergency Medicine; PCP Internal Medicine
DX: S02.2XXA Fracture of nasal bones, initial encounter for closed fracture (principal); Y04.2XXA Assault by strike against or bumped into by another person, initial encounter; G43.909 Migraine, unspecified, not intractable, without status migrainosus; Y93.F9 Activity, other caregiving; Y92.230 Patient room in hospital as the place of occurrence of the external cause; Y99.0 Civilian activity done for income or pay
CPT/HCPCS: 70486; 81025; 99284

== ENCOUNTER → 2024-08-15 18:25 | Outpatient (BNV) | payer OTHER, SELFPAY | PROVIDERS: PCP Internal Medicine; Visit Provider Radiology Vascular & Interventional Radiology | DX: S02.2XXA Fracture of nasal bones, initial encounter for closed fracture (principal) | CPT/HCPCS: 70486 ==

== ENCOUNTER → 2024-08-25 14:05 | Outpatient (BNVA) | payer OTHER, SELFPAY | PROVIDERS: PCP Internal Medicine; Visit Provider Physician Assistant | DX: Z13.89 Encounter for screening for other disorder (principal) | CPT/HCPCS: 99204 ==